=== PATIENT | female | born 1960 | race Caucasian/White ===

== ENCOUNTER 2017-08-28 18:53 | Inpatient (IN) | payer MEDICARE, OTHER ==
[~2017-08-28] VITALS: Ht 157.5 cm; Wt 65.8 kg
[~2017-08-28 18:53] MED LIST: ALBIPROI INH; ALBU90OI; ALBU90OI61 INH; ALEN70 PO; ALPR1 PO; AMIT25; AMIT50 PO; AMOCLA875 PO; ASPI81CH MT; AZIT250 PO; AZIT500 PO; Adipex-P37.5 M1 MT; CALCA500CH MT; CENTRUM SILVER1 EAC2 MT; CHANTIX; CHOL10002 MT; CLON2; CLON2 PO; CRUTCH3 USE; Catapres0.1 MG PO; DHEA PO; DOC250 PO; DOCU100 PO; DULO60 PO; ERGO400 PO; ESCI10; ESOM20; ESOM20 PO; ESZO3 PO; FENT50TP TOP; FERR325 MT; FLUO20 PO; FLUT.05NI; FURO20 PO; Flonase 0.05% N16 GM; GABA300 PO; HYDACE10B PO; HYDACE7.5 PO; HYDMOR4 PO; HYDPAM25 PO; LAVAP17G MT; LEVFLO500 PO; LEVO750 PO; LEVSOD100 PO; LEVSOD112 PO; LORA.5 PO; METH10 PO; MIRT15 SL; MORP15ER MT; MORP30ER MT; MORPHINE MT; NAPR500; NAPR500 PO; OMEP20ER PO; OMEP40CA12 PO; ONDA4 PO; OXYACE5T PO; OXYC10TA19 PO; OXYC15ER PO; OXYC1TAB11 PO; OXYC20ER; OXYC20ER PO; OXYC30ER PO; OXYC40ER PO; OXYC5 PO; POLY17UD PO; POTA10T PO; PRED10 PO; PRED20 PO; PREG50; PROM25; PROM25 PO; RANI150 PO; RXTRAM50 PO; SENN187 PO; SEVELLA PO; SOMA350 MG PO; SULTRIDS PO; TIZA4 PO; TOCO400 PO; TRAZ100 PO; Tamiflu75 MG PO; VIIBRYD20 MG MT; ZANAFLEX PO; [UNRECOGNIZED DRUG - OTHER] PO; [UNRECOGNIZED DRUG - OTHER] PO
[2017-08-28 19:25] LABS: BASOPHILS ABSOLUTE AUTO 0.02 K/mm3 (0.00-0.23); BASOPHILS PERCENT AUTO 0 % (0-2); EOSINOPHILS ABSOLUTE AUTO 0.07 K/mm3 (0.00-0.68); EOSINOPHILS PERCENT AUTO 1 % (0-6); Hematocrit 38.5 % (33.0-51.0); Hemoglobin 13.2 g/dL (11.5-16.0); IMMATURE GRAN ABSOLUTE AUTO 0.02 K/mm3 (0.00-0.10); IMMATURE GRAN PERCENT AUTO 0 % (0-1); LYMPHOCYTES ABSOLUTE AUTO 2.08 K/mm3 (0.84-5.20); LYMPHOCYTES PERCENT AUTO 31 % (21-46); MONOCYTES ABSOLUTE AUTO 0.56 K/mm3 (0.16-1.47); MONOCYTES PERCENT AUTO 8 % (4-13); Mean Corpuscular HGB 32.6 pg (26.0-34.0); Mean Corpuscular HGB Conc 34.3 g/dL (31.5-36.5); Mean Corpuscular Volume 95 fL (80-100); Mean Platelet Volume 10.1 fL (9.1-12.4); NEUTROPHILS ABSOLUTE AUTO 3.97 K/mm3 (1.96-9.15); NEUTROPHILS PERCENT AUTO 59 % (41-73); Platelet Count 151 K/mm3 (150-400); RDW Coefficient Variation 11.8 % (11.7-14.2); RDW Standard Deviation 41.1 fL (35.1-46.3); Red Blood Cell Count 4.05 M/mm3 (3.80-5.20); White Blood Cell Count 6.72 K/mm3 (4.00-11.30)
[2017-08-28 19:45] LABS: Alanine Aminotransfer (ALT/SGP 29 U/L (12-78); Albumin, Blood 3.7 g/dL (3.4-5.0); Albumin/Globulin Ratio 0.9 (0.8-1.8); Alk Phos 52 U/L (50-136); Anion Gap 10 mmol/L (6-16); Aspartate Aminotrans (AST/SGOT 21 U/L (12-37); Bilirubin, Total 0.2 mg/dL (0.1-1.0); Blood Urea Nitrogen 17 mg/dL (8-24); Bun/Creatinine Ratio 26.4 (12.0-20.0); CO2, Blood 26 mmol/L (21-32); Calcium, Blood 9.1 mg/dL (8.5-10.1); Chloride, Blood 105 mmol/L (98-108); Creatinine, Blood 0.64 mg/dL (0.40-1.00); Globulin, Blood 3.9 g/dL (2.2-4.0); Glomerular Filtration Rate >60 (60-); Glucose, Blood 112 mg/dL (70-99); Potassium, Blood 3.6 mmol/L (3.5-5.5); Sodium, Blood 141 mmol/L (136-145); Total Protein, Blood 7.6 g/dL (6.4-8.2); Troponin I <0.015 ng/mL (0.000-0.040)
[2017-08-28 20:20] LABS: Source, Urine Clean Catch
[2017-08-28 20:28] LABS: Bilirubin, Urine Neg (Neg); Blood, Urine 1+ (Neg); Glucose Qualitative, Urine Neg (Neg); Ketones, Urine Neg (Neg); Leukocyte Esterase, Urine 2+ (Neg); Nitrite, Urine Neg (Neg); Protein, Urine Neg (Neg); Urobilinogen, Urine NORM (Normal); pH, Urine 6.5 (5.0-8.0)
[2017-08-28 20:38] LABS: Appearance, Urine Hazy (Clear); Color, Urine Yellow (P-Yellow)
[2017-08-28 20:40] LABS: Bacteria Many /hpf; Squamous Epithelial Cells Few /hpf (Few)
[2017-08-28] MEDS ORDERED: Trazodone HCl300 MG PO (22:41)
[2017-08-28] MEDS ORDERED: QUET200 PO (22:44)
[2017-08-29] MEDS ORDERED: ANORO ELLIPTA1 EACH INH (12:01)
[2017-08-30] MEDS ORDERED: Augmentin 875-1 EACH PO (14:49)
[2018-05-01] MEDS ORDERED: ANORO ELLIPTA1 EACH (12:52)
[2018-05-01] MEDS ORDERED: VARE1 (12:53)
[2018-05-01] MEDS ORDERED: QUET25 (12:54)
[2018-05-01] MEDS ORDERED: PROM12.5S (12:54)
[2018-05-01] MEDS ORDERED: LEVSOD50 (12:54)
[2018-05-01] MEDS ORDERED: DICL25ER (12:55)
== END 2017-08-30 15:19 | disposition home or self-care (01) | DRG 339 ==
LOC: ER 18:53 → SURS 18:54
PROVIDERS: Emergency Medicine; Surgery
PROC: 0DTJ4ZZ Resection of Appendix, Percutaneous Endoscopic Approach (ICD-10-PCS; principal; 2017-08-29 16:50)
DX: K35.3 Acute appendicitis with localized peritonitis (principal); F11.20 Opioid dependence, uncomplicated; Z99.81 Dependence on supplemental oxygen; J44.9 Chronic obstructive pulmonary disease, unspecified; M81.0 Age-related osteoporosis without current pathological fracture; K21.9 Gastro-esophageal reflux disease without esophagitis; M79.7 Fibromyalgia; B18.2 Chronic viral hepatitis C; F17.210 Nicotine dependence, cigarettes, uncomplicated; Z88.8 Allergy status to other drugs, medicaments and biological substances; Z79.51 Long term (current) use of inhaled steroids; Z79.899 Other long term (current) drug therapy; Z79.82 Long term (current) use of aspirin
CPT/HCPCS: 36415; 74176; 80053; 81001; 83690; 84484; 85025; 87086; 88304; 93005; 93010; 96365; 96375; 96376; 99285; J0295; J1100; J1170; J1885; J2250; J2405; J2543; J2710; J3010; J7030; J7042; J7120

== ENCOUNTER → 2018-07-06 | Outpatient (CLI) | payer MEDICARE, OTHER ==
[~2018-07-06] MED LIST changes: +ANORO ELLIPTA1 EACH; +ANORO ELLIPTA1 EACH INH; +Augmentin 875-1 EACH PO; +DICL25ER; +LEVSOD50; +PROM12.5S; +QUET200 PO; +QUET25; +Trazodone HCl300 MG PO; +VARE1
[2018-07-06 14:02] LABS: Source, Urine Clean Catch
[2018-07-06 14:41] LABS: Bilirubin, Urine Neg (Neg); Blood, Urine Neg (Neg); Glucose Qualitative, Urine Neg (Neg); Ketones, Urine Neg (Neg); Leukocyte Esterase, Urine 1+ (Neg); Nitrite, Urine Neg (Neg); Protein, Urine 1+ (Neg); Urobilinogen, Urine 1+ (Normal)
[2018-07-06 14:53] LABS: Appearance, Urine Clear (Clear); Color, Urine Yellow (P-Yellow)
[2018-07-06 14:54] LABS: Bacteria Mod /hpf; Red Blood Cells, Urine 0-2 /hpf (0-2); Squamous Epithelial Cells Rare /hpf (Few); White Blood Cells, Urine 0-2 /hpf (0-5)
== END | disposition home or self-care (01) ==
LOC: LAB SHORT 14:01 → LAB 14:01 → LAB FUT 06-26 17:45 → EDSTATUS 06-26 17:45
PROVIDERS: Internal Medicine
DX: N39.0 Urinary tract infection, site not specified (principal)
CPT/HCPCS: 81001

== ENCOUNTER → 2018-07-17 | Outpatient (CLI) | payer MEDICARE, OTHER ==
[2018-07-17 12:55] LABS: Bilirubin, Urine Neg (Neg); Blood, Urine Neg (Neg); Glucose Qualitative, Urine Neg (Neg); Ketones, Urine Neg (Neg); Leukocyte Esterase, Urine Neg (Neg); Nitrite, Urine Neg (Neg); Protein, Urine Neg (Neg); Urobilinogen, Urine NORM (Normal)
[2018-07-17 13:11] LABS: Appearance, Urine Clear (Clear); Color, Urine Yellow (P-Yellow)
== END | disposition home or self-care (01) ==
LOC: LAB SHORT 07:15 → LAB 07:15 → LAB FUT 07-06 17:45
PROVIDERS: Internal Medicine
DX: N39.0 Urinary tract infection, site not specified (principal)
CPT/HCPCS: 81003

== ENCOUNTER → 2018-10-30 | Outpatient (CLI) | payer MEDICARE, OTHER ==
[2018-10-30 17:09] LABS: Source, Urine Clean Catch
[2018-10-30 17:44] LABS: Appearance, Urine Hazy (Clear); Bilirubin, Urine Neg (Neg); Blood, Urine Neg (Neg); Color, Urine Yellow (P-Yellow); Glucose Qualitative, Urine Neg (Neg); Ketones, Urine Neg (Neg); Leukocyte Esterase, Urine 1+ (Neg); Nitrite, Urine Neg (Neg); Protein, Urine Neg (Neg); Urobilinogen, Urine NORM (Normal)
[2018-10-30 18:00] LABS: Bacteria Few /hpf; Red Blood Cells, Urine 0-2 /hpf (0-2); Squamous Epithelial Cells Rare /hpf (Few); White Blood Cells, Urine 0-2 /hpf (0-5)
== END | disposition home or self-care (01) ==
LOC: LAB 17:07 → LAB SHORT 17:07
PROVIDERS: Internal Medicine
DX: N39.0 Urinary tract infection, site not specified (principal)
CPT/HCPCS: 81001; 87086

== ENCOUNTER 2019-03-04 16:11 | Emergency (ER) | payer MEDICARE, OTHER ==
[~2019-03-04] VITALS: Ht 160 cm; Wt 56.7 kg
[2019-03-04 17:02] LABS: Source, Urine Clean Catch
[2019-03-04] MEDS ORDERED: OXYC1TAB11 (17:03)
[2019-03-04] MEDS ORDERED: Alprazolam1 MG PO (17:03)
[2019-03-04] MEDS ORDERED: PROM25 PO (17:03)
[2019-03-04] MEDS ORDERED: DULO60 PO (17:05)
[2019-03-04 17:13] LABS: Bilirubin, Urine Neg (Neg); Blood, Urine 1+ (Neg); Glucose Qualitative, Urine Neg (Neg); Ketones, Urine Neg (Neg); Leukocyte Esterase, Urine 1+ (Neg); Nitrite, Urine Neg (Neg); Protein, Urine 1+ (Neg); Specific Gravity, Urine 1.025 (1.003-1.022); Urobilinogen, Urine NORM (Normal)
[2019-03-04 17:15] LABS: BASOPHILS ABSOLUTE AUTO 0.02 K/mm3 (0.00-0.23); BASOPHILS PERCENT AUTO 0 % (0-2); EOSINOPHILS ABSOLUTE AUTO 0.09 K/mm3 (0.00-0.68); EOSINOPHILS PERCENT AUTO 2 % (0-6); Hematocrit 35.3 % (33.0-51.0); Hemoglobin 12.3 g/dL (11.5-16.0); IMMATURE GRAN ABSOLUTE AUTO 0.01 K/mm3 (0.00-0.10); IMMATURE GRAN PERCENT AUTO 0 % (0-1); LYMPHOCYTES ABSOLUTE AUTO 2.41 K/mm3 (0.84-5.20); LYMPHOCYTES PERCENT AUTO 50 % (21-46); MONOCYTES ABSOLUTE AUTO 0.39 K/mm3 (0.16-1.47); MONOCYTES PERCENT AUTO 8 % (4-13); Mean Corpuscular HGB 33.7 pg (26.0-34.0); Mean Corpuscular HGB Conc 34.8 g/dL (31.5-36.5); Mean Corpuscular Volume 97 fL (80-100); Mean Platelet Volume 10.6 fL (9.1-12.4); NEUTROPHILS ABSOLUTE AUTO 1.92 K/mm3 (1.96-9.15); NEUTROPHILS PERCENT AUTO 40 % (41-73); Platelet Count 153 K/mm3 (150-400); RDW Coefficient Variation 12.6 % (11.7-14.2); RDW Standard Deviation 44.8 fL (35.1-46.3); Red Blood Cell Count 3.65 M/mm3 (3.80-5.20); White Blood Cell Count 4.84 K/mm3 (4.00-11.30)
[2019-03-04 17:21] LABS: Appearance, Urine Clear (Clear); Calcium Oxalate Crystals Many /hpf; Color, Urine Yellow (P-Yellow)
[2019-03-04 17:22] LABS: Bacteria Few /hpf; Red Blood Cells, Urine 0-2 /hpf (0-2); Squamous Epithelial Cells Few /hpf (Few)
[2019-03-04 17:32] LABS: Alanine Aminotransfer (ALT/SGP 23 U/L (12-78); Albumin, Blood 3.7 g/dL (3.4-5.0); Albumin/Globulin Ratio 1.2 (0.8-1.8); Alk Phos 115 U/L (50-136); Anion Gap 3 mmol/L (6-16); Aspartate Aminotrans (AST/SGOT 19 U/L (12-37); Bilirubin, Total 0.3 mg/dL (0.1-1.0); Blood Urea Nitrogen 14 mg/dL (8-24); Bun/Creatinine Ratio 24.8 (12.0-20.0); CO2, Blood 27 mmol/L (21-32); Chloride, Blood 111 mmol/L (98-108); Creatinine, Blood 0.57 mg/dL (0.40-1.00); Globulin, Blood 3.2 g/dL (2.2-4.0); Glomerular Filtration Rate >60 (60-); Glucose, Blood 96 mg/dL (70-99); Potassium, Blood 3.9 mmol/L (3.5-5.5); Sodium, Blood 141 mmol/L (136-145); Total Protein, Blood 6.9 g/dL (6.4-8.2)
== END 2019-03-04 18:50 | disposition home or self-care (01) ==
LOC: ER 16:11
PROVIDERS: Physician Assistant
DX: R42 Dizziness and giddiness (principal); J44.9 Chronic obstructive pulmonary disease, unspecified; F17.210 Nicotine dependence, cigarettes, uncomplicated; K21.9 Gastro-esophageal reflux disease without esophagitis; Z88.8 Allergy status to other drugs, medicaments and biological substances; Z79.899 Other long term (current) drug therapy; Z79.891 Long term (current) use of opiate analgesic; Z79.1 Long term (current) use of non-steroidal anti-inflammatories (NSAID)
CPT/HCPCS: 36415; 80053; 81001; 85025; 87077; 87086; 87186; 99284

== ENCOUNTER → 2019-05-03 | Outpatient (CLI) | payer MEDICARE, OTHER ==
[~2019-05-03] MED LIST changes: +Alprazolam1 MG PO; +OXYC1TAB11
[2019-05-03 12:10] LABS: Bilirubin, Urine Neg (Neg); Blood, Urine Neg (Neg); Glucose Qualitative, Urine Neg (Neg); Ketones, Urine Neg (Neg); Leukocyte Esterase, Urine 1+ (Neg); Nitrite, Urine Neg (Neg); Protein, Urine Neg (Neg); Urobilinogen, Urine NORM (Normal)
[2019-05-03 12:34] LABS: Appearance, Urine Hazy (Clear); Color, Urine Yellow (P-Yellow)
[2019-05-03 12:35] LABS: Amorphous Heavy (0-Heavy); Bacteria Few /hpf; Red Blood Cells, Urine 0-2 /hpf (0-2); Squamous Epithelial Cells Rare /hpf (Few)
== END | disposition home or self-care (01) ==
LOC: LAB SHORT 09:30 → OLS 09:30
PROVIDERS: Internal Medicine
DX: N39.0 Urinary tract infection, site not specified (principal)
CPT/HCPCS: 81001; 87086; 87147

== ENCOUNTER → 2019-05-06 | Outpatient (CLI) | payer MEDICARE, OTHER ==
[2019-05-07 13:26] LABS: Stool Occult Bld Immuno 1 Negative (NEGATIVE); Stool Occult Bld Immuno 2 Negative (NEGATIVE)
== END | disposition home or self-care (01) ==
LOC: OLS 08:15 → LAB SHORT 08:15
PROVIDERS: Internal Medicine
DX: Z12.11 Encounter for screening for malignant neoplasm of colon (principal)
CPT/HCPCS: G0328

== ENCOUNTER → 2019-05-11 | Outpatient (CLI) | payer MEDICARE, OTHER ==
[2019-05-15 15:07] LABS: M-SPIKE, % Not Observed % (Not Observed); PROTEIN,TOTAL,URINE 8.9 mg/dL (Not Estab.)
== END ==
LOC: OLS 10:49 → LAB SHORT 10:49
PROVIDERS: Internal Medicine
DX: Z00.01 Encounter for general adult medical examination with abnormal findings (principal)
CPT/HCPCS: 81050; 84166; 86335

== ENCOUNTER → 2019-08-06 | Outpatient (CLI) | payer MEDICARE, OTHER | LOC: LAB 19:38 → LAB SHORT 19:38 | DX: R30.0 Dysuria (principal) | CPT/HCPCS: 87077; 87086 ==

== ENCOUNTER → 2019-10-29 | Outpatient (CLI) | payer MEDICARE, OTHER | END | disposition home or self-care (01) | LOC: LAB SHORT 18:30 → LAB 18:30 → LAB FUT 05-04 19:05 | DX: R30.0 Dysuria (principal) | CPT/HCPCS: 87086; 87147 ==

== ENCOUNTER → 2020-04-30 | Outpatient (CLI) | payer MEDICARE, OTHER ==
[2020-04-30 15:06] LABS: Bilirubin, Urine Neg (Neg); Blood, Urine 1+ (Neg); Glucose Qualitative, Urine Neg (Neg); Ketones, Urine Neg (Neg); Leukocyte Esterase, Urine Neg (Neg); Nitrite, Urine Neg (Neg); Protein, Urine Neg (Neg); Specific Gravity, Urine 1.015 (1.003-1.022); Urobilinogen, Urine NORM (Normal)
[2020-04-30 15:18] LABS: Appearance, Urine Clear (Clear); Color, Urine Yellow (P-Yellow)
[2020-04-30 15:19] LABS: Bacteria Few /hpf; Squamous Epithelial Cells Few /hpf (Few); White Blood Cells, Urine 0-2 /hpf (0-5)
== END ==
LOC: LAB SHORT 13:50 → LAB 13:50
PROVIDERS: Internal Medicine
DX: N39.0 Urinary tract infection, site not specified (principal)
CPT/HCPCS: 81001

== ENCOUNTER 2020-06-20 08:17 | Emergency (ER) | payer OTHER, MEDICARE ==
[~2020-06-20] VITALS: Ht 160 cm; Wt 55.3 kg
[2020-06-20 09:00] LABS: Source, Urine Clean Catch
[2020-06-20] MEDS ORDERED: CHLORZOXAZONE375 MG PO (09:02)
[2020-06-20] MEDS ORDERED: DULOXETINE HCL60 M1 PO (09:02)
[2020-06-20] MEDS ORDERED: GABAPENTIN600 MG (09:02)
[2020-06-20 09:03] LABS: BASOPHILS ABSOLUTE AUTO 0.02 K/mm3 (0.00-0.23); BASOPHILS PERCENT AUTO 1 % (0-2); EOSINOPHILS ABSOLUTE AUTO 0.06 K/mm3 (0.00-0.68); EOSINOPHILS PERCENT AUTO 2 % (0-6); Hematocrit 38.9 % (33.0-51.0); Hemoglobin 13.3 g/dL (11.5-16.0); IMMATURE GRAN PERCENT AUTO 0 % (0-1); LYMPHOCYTES ABSOLUTE AUTO 1.88 K/mm3 (0.84-5.20); LYMPHOCYTES PERCENT AUTO 46 % (21-46); MONOCYTES ABSOLUTE AUTO 0.36 K/mm3 (0.16-1.47); MONOCYTES PERCENT AUTO 9 % (4-13); Mean Corpuscular HGB 33.4 pg (26.0-34.0); Mean Corpuscular HGB Conc 34.2 g/dL (31.5-36.5); Mean Corpuscular Volume 98 fL (80-100); Mean Platelet Volume 10.7 fL (9.1-12.4); NEUTROPHILS ABSOLUTE AUTO 1.75 K/mm3 (1.96-9.15); NEUTROPHILS PERCENT AUTO 43 % (41-73); Platelet Count 144 K/mm3 (150-400); RDW Coefficient Variation 11.9 % (11.7-14.2); RDW Standard Deviation 42.6 fL (35.1-46.3); Red Blood Cell Count 3.98 M/mm3 (3.80-5.20); White Blood Cell Count 4.07 K/mm3 (4.00-11.30)
[2020-06-20] MEDS ORDERED: Phenergan25 M1 (09:03)
[2020-06-20] MEDS ORDERED: ALPRAZOLAM1 M1 PO (09:03)
[2020-06-20] MEDS ORDERED: TRAZ100 PO (09:03)
[2020-06-20] MEDS ORDERED: EUTHYROX88 MC1 PO (09:04)
[2020-06-20] MEDS ORDERED: OXYCODONE-ACET1 EAC2 PO (09:04)
[2020-06-20 09:08] LABS: Bilirubin, Urine Neg (Neg); Blood, Urine 1+ (Neg); Glucose Qualitative, Urine Neg (Neg); Ketones, Urine Neg (Neg); Leukocyte Esterase, Urine 1+ (Neg); Nitrite, Urine Pos (Neg); Protein, Urine Neg (Neg); Specific Gravity, Urine 1.015 (1.003-1.022); Urobilinogen, Urine NORM (Normal)
[2020-06-20 09:17] LABS: Appearance, Urine Hazy (Clear); Bacteria Mod /hpf; Color, Urine Yellow (P-Yellow); Squamous Epithelial Cells Few /hpf (Few)
[2020-06-20 09:25] LABS: Alanine Aminotransfer (ALT/SGP 27 U/L (12-78); Albumin/Globulin Ratio 1.2 (0.8-1.8); Alk Phos 100 U/L (50-136); Anion Gap 4 mmol/L (6-16); Aspartate Aminotrans (AST/SGOT 18 U/L (12-37); Bilirubin, Total 0.3 mg/dL (0.1-1.0); Blood Urea Nitrogen 17 mg/dL (8-24); Bun/Creatinine Ratio 27.9 (12.0-20.0); CO2, Blood 30 mmol/L (21-32); Calcium, Blood 9.4 mg/dL (8.5-10.1); Chloride, Blood 109 mmol/L (98-108); Creatinine, Blood 0.61 mg/dL (0.40-1.00); Globulin, Blood 3.4 g/dL (2.2-4.0); Glomerular Filtration Rate >60 (60-); Glucose, Blood 131 mg/dL (70-99); Sodium, Blood 143 mmol/L (136-145); Total Protein, Blood 7.4 g/dL (6.4-8.2)
== END 2020-06-20 10:11 | disposition home or self-care (01) ==
LOC: ER 08:17
PROVIDERS: Physician Assistant
DX: G89.29 Other chronic pain (principal); R10.9 Unspecified abdominal pain; M25.512 Pain in left shoulder; M79.651 Pain in right thigh; M25.561 Pain in right knee; R11.2 Nausea with vomiting, unspecified; K21.9 Gastro-esophageal reflux disease without esophagitis; F17.210 Nicotine dependence, cigarettes, uncomplicated; Z87.828 Personal history of other (healed) physical injury and trauma; Z79.899 Other long term (current) drug therapy
CPT/HCPCS: 36415; 80053; 81001; 85025; 87077; 87086; 87186; 96374; 96375; 99284-25; J1170; J2405

== ENCOUNTER 2020-08-23 07:11 | Emergency (ER) | payer MEDICARE, OTHER ==
[~2020-08-23] VITALS: Ht 160 cm; Wt 56.7 kg
[~2020-08-23 07:11] MED LIST changes: +ALPRAZOLAM1 M1 PO; +CHLORZOXAZONE375 MG PO; +DULOXETINE HCL60 M1 PO; +EUTHYROX88 MC1 PO; +GABAPENTIN600 MG PO; +OXYCODONE-ACET1 EAC2 PO; +Phenergan25 M1 PO
[2020-08-23 07:26] LABS: Source, Urine Clean Catch
[2020-08-23 07:28] LABS: Bilirubin, Urine Neg (Neg); Blood, Urine Neg (Neg); Glucose Qualitative, Urine Neg (Neg); Ketones, Urine Neg (Neg); Leukocyte Esterase, Urine Neg (Neg); Nitrite, Urine Neg (Neg); Protein, Urine Neg (Neg); Specific Gravity, Urine 1.015 (1.003-1.022); Urobilinogen, Urine NORM (Normal)
[2020-08-23] MEDS ORDERED: MS Contin15 MG PO (07:34)
[2020-08-23] MEDS ORDERED: MORPHINE SULFAT15 M1 PO (07:34)
[2020-08-23] MEDS ORDERED: TRAZ50 PO (07:35)
[2020-08-23] MEDS ORDERED: AMIT10 PO (07:37)
[2020-08-23] MEDS ORDERED: Ventolin/Prove6.7 GM INH (07:38)
[2020-08-23] MEDS ORDERED: NARCAN4 M1 (07:38)
[2020-08-23 07:40] LABS: Amorphous Mod (0-Heavy); Appearance, Urine Hazy (Clear); Bacteria Not Seen /hpf; Color, Urine Yellow (P-Yellow); Red Blood Cells, Urine Not Seen /hpf (0-2); Squamous Epithelial Cells Not Seen /hpf (Few); White Blood Cells, Urine Not Seen /hpf (0-5)
[2020-08-23] MEDS ORDERED: GABAPENTIN600 MG PO (07:41)
[2020-08-23 08:30] LABS: BASOPHILS ABSOLUTE AUTO 0.03 K/mm3 (0.00-0.23); BASOPHILS PERCENT AUTO 0 % (0-2); EOSINOPHILS ABSOLUTE AUTO 0.08 K/mm3 (0.00-0.68); EOSINOPHILS PERCENT AUTO 1 % (0-6); Hematocrit 37.1 % (33.0-51.0); Hemoglobin 12.5 g/dL (11.5-16.0); IMMATURE GRAN ABSOLUTE AUTO 0.04 K/mm3 (0.00-0.10); IMMATURE GRAN PERCENT AUTO 0 % (0-1); LYMPHOCYTES ABSOLUTE AUTO 1.24 K/mm3 (0.84-5.20); LYMPHOCYTES PERCENT AUTO 14 % (21-46); MONOCYTES ABSOLUTE AUTO 0.76 K/mm3 (0.16-1.47); MONOCYTES PERCENT AUTO 8 % (4-13); Mean Corpuscular HGB 32.3 pg (26.0-34.0); Mean Corpuscular HGB Conc 33.7 g/dL (31.5-36.5); Mean Corpuscular Volume 96 fL (80-100); Mean Platelet Volume 10.7 fL (9.1-12.4); NEUTROPHILS PERCENT AUTO 77 % (41-73); Platelet Count 130 K/mm3 (150-400); RDW Coefficient Variation 11.4 % (11.7-14.2); RDW Standard Deviation 40.4 fL (35.1-46.3); Red Blood Cell Count 3.87 M/mm3 (3.80-5.20); White Blood Cell Count 9.15 K/mm3 (4.00-11.30)
[2020-08-23 08:51] LABS: Alanine Aminotransfer (ALT/SGP 26 U/L (12-78); Albumin, Blood 3.5 g/dL (3.4-5.0); Alk Phos 84 U/L (50-136); Anion Gap 5 mmol/L (6-16); Aspartate Aminotrans (AST/SGOT 18 U/L (12-37); Bilirubin, Total 0.4 mg/dL (0.1-1.0); Blood Urea Nitrogen 18 mg/dL (8-24); Bun/Creatinine Ratio 29.6 (12.0-20.0); CO2, Blood 28 mmol/L (21-32); Calcium, Blood 9.1 mg/dL (8.5-10.1); Chloride, Blood 110 mmol/L (98-108); Creatinine, Blood 0.61 mg/dL (0.40-1.00); Globulin, Blood 3.5 g/dL (2.2-4.0); Glomerular Filtration Rate >60 (60-); Glucose, Blood 96 mg/dL (70-99); Potassium, Blood 3.9 mmol/L (3.5-5.5); Sodium, Blood 143 mmol/L (136-145); Troponin I <0.015 ng/mL (0.000-0.040)
[2020-08-23 09:11] LABS: Influenza A, PCR NEGATIVE (NEGATIVE); Influenza B, PCR NEGATIVE (NEGATIVE); Resp Syncytial Virus, PCR NEGATIVE (NEGATIVE); SARS-Cov-2 (COVID-19) PCR, MMC NEGATIVE (NEGATIVE)
[2020-08-23] MEDS ORDERED: Vibramycin100 MG PO (09:36)
[2020-08-23] MEDS ORDERED: Prednisone50 MG PO (09:36)
[2020-08-23] MEDS ORDERED: ALBU90OI INH (09:36)
[2020-08-23 09:47] LABS: Base Excess Venous 2.1 mmol/L; Bicarbonate Venous 25.9 mmol/L (24.0-30.0); PCO2 Venous 44.4 mmHg (38-42); PO2 Venous 122 mmHg (38-42); pH Blood Venous 7.39 (7.34-7.37)
[2020-12-27] MEDS ORDERED: CYMBALTA60 M2 PO (06:13)
[2020-12-27] MEDS ORDERED: ALPRAZOLAM PO (06:16)
[2020-12-27] MEDS ORDERED: FERROUS SULFAT325 M3 PO (06:17)
[2020-12-27] MEDS ORDERED: COLACE100 MG PO (06:17)
[2020-12-27] MEDS ORDERED: LINZESS290 MCG PO (06:17)
[2020-12-27] MEDS ORDERED: SEROQUEL200 MG PO (06:18)
[2020-12-27] MEDS ORDERED: OXYC10TA19 (06:18)
[2020-12-27] MEDS ORDERED: ZANAFLEX4 M5 PO (06:18)
[2020-12-27] MEDS ORDERED: PROZAC40 MG PO (06:18)
[2020-12-27] MEDS ORDERED: FENT200LOZ MM (06:19)
[2020-12-27] MEDS ORDERED: MS CONTIN PO (06:19)
[2020-12-27] MEDS ORDERED: EUTHYROX88 MC1 (06:19)
[2020-12-27] MEDS ORDERED: CHLORZOXAZONE375 MG (06:20)
[2020-12-27] MEDS ORDERED: TRAZ50 (06:21)
[2020-12-27] MEDS ORDERED: AMOCLA875 PO (08:25)
[2020-12-27] MEDS ORDERED: DOXY100 PO (08:25)
== END 2020-08-23 09:58 | disposition home or self-care (01) ==
LOC: ER 07:11
PROVIDERS: Emergency Medicine
DX: J44.1 Chronic obstructive pulmonary disease with (acute) exacerbation (principal); F17.210 Nicotine dependence, cigarettes, uncomplicated; Z20.822 Contact with and (suspected) exposure to COVID-19; Z79.899 Other long term (current) drug therapy
CPT/HCPCS: 0241U; 36415; 71045; 80053; 81001; 82803; 83880; 84484; 85025; 93005; 93010; 94640; 99285-25; A9270; J7030; J7512

== ENCOUNTER 2020-11-24 17:43 | Emergency (ER) | payer MEDICARE, OTHER ==
[~2020-11-24] VITALS: Ht 160 cm; Wt 63.5 kg
[~2020-11-24 17:43] MED LIST changes: +ALBU90OI INH; +AMIT10 PO; +MORPHINE SULFAT15 M1 PO; +MS Contin15 MG PO; +NARCAN4 M1; +Prednisone50 MG PO; +TRAZ50 PO; +Ventolin/Prove6.7 GM INH; +Vibramycin100 MG PO
[2020-11-24 19:06] LABS: BASOPHILS ABSOLUTE AUTO 0.03 K/mm3 (0.00-0.23); BASOPHILS PERCENT AUTO 1 % (0-2); EOSINOPHILS ABSOLUTE AUTO 0.18 K/mm3 (0.00-0.68); EOSINOPHILS PERCENT AUTO 4 % (0-6); Hematocrit 38.7 % (33.0-51.0); IMMATURE GRAN ABSOLUTE AUTO 0.01 K/mm3 (0.00-0.10); IMMATURE GRAN PERCENT AUTO 0 % (0-1); LYMPHOCYTES ABSOLUTE AUTO 2.06 K/mm3 (0.84-5.20); LYMPHOCYTES PERCENT AUTO 42 % (21-46); MONOCYTES ABSOLUTE AUTO 0.49 K/mm3 (0.16-1.47); MONOCYTES PERCENT AUTO 10 % (4-13); Mean Corpuscular HGB 32.6 pg (26.0-34.0); Mean Corpuscular HGB Conc 33.6 g/dL (31.5-36.5); Mean Corpuscular Volume 97 fL (80-100); Mean Platelet Volume 10.1 fL (9.1-12.4); NEUTROPHILS ABSOLUTE AUTO 2.18 K/mm3 (1.96-9.15); NEUTROPHILS PERCENT AUTO 44 % (41-73); Platelet Count 151 K/mm3 (150-400); RDW Coefficient Variation 12.8 % (11.7-14.2); RDW Standard Deviation 45.9 fL (35.1-46.3); Red Blood Cell Count 3.99 M/mm3 (3.80-5.20); White Blood Cell Count 4.95 K/mm3 (4.00-11.30)
[2020-11-24 19:44] LABS: Alanine Aminotransfer (ALT/SGP 40 U/L (12-78); Albumin, Blood 4.1 g/dL (3.4-5.0); Albumin/Globulin Ratio 1.2 (0.8-1.8); Alk Phos 99 U/L (50-136); Anion Gap 0 mmol/L (6-16); Aspartate Aminotrans (AST/SGOT 28 U/L (12-37); Bilirubin, Total 0.3 mg/dL (0.1-1.0); Blood Urea Nitrogen 18 mg/dL (8-24); Bun/Creatinine Ratio 26.1 (12.0-20.0); CO2, Blood 32 mmol/L (21-32); Calcium, Blood 9.6 mg/dL (8.5-10.1); Chloride, Blood 106 mmol/L (98-108); Creatinine, Blood 0.69 mg/dL (0.40-1.00); Globulin, Blood 3.3 g/dL (2.2-4.0); Glomerular Filtration Rate >60 (60-); Glucose, Blood 93 mg/dL (70-99); Potassium, Blood 4.4 mmol/L (3.5-5.5); Sodium, Blood 138 mmol/L (136-145); Total Protein, Blood 7.4 g/dL (6.4-8.2); Troponin I <0.015 ng/mL (0.000-0.040)
[2020-11-24] MEDS ORDERED: GABA100 PO (20:43)
[2020-12-27] MEDS ORDERED: CYMBALTA60 M2 PO (06:13)
[2020-12-27] MEDS ORDERED: ALPRAZOLAM PO (06:16)
[2020-12-27] MEDS ORDERED: FERROUS SULFAT325 M3 PO (06:17)
[2020-12-27] MEDS ORDERED: COLACE100 MG PO (06:17)
[2020-12-27] MEDS ORDERED: LINZESS290 MCG PO (06:17)
[2020-12-27] MEDS ORDERED: OXYC10TA19 (06:18)
[2020-12-27] MEDS ORDERED: PROZAC40 MG PO (06:18)
[2020-12-27] MEDS ORDERED: SEROQUEL200 MG PO (06:18)
[2020-12-27] MEDS ORDERED: ZANAFLEX4 M5 PO (06:18)
[2020-12-27] MEDS ORDERED: EUTHYROX88 MC1 (06:19)
[2020-12-27] MEDS ORDERED: FENT200LOZ MM (06:19)
[2020-12-27] MEDS ORDERED: MS CONTIN PO (06:19)
[2020-12-27] MEDS ORDERED: CHLORZOXAZONE375 MG (06:20)
[2020-12-27] MEDS ORDERED: TRAZ50 (06:21)
[2020-12-27] MEDS ORDERED: AMOCLA875 PO (08:25)
[2020-12-27] MEDS ORDERED: DOXY100 PO (08:25)
== END 2020-11-24 21:48 | disposition home or self-care (01) ==
LOC: ER 17:43
PROVIDERS: Physician Assistant
DX: R60.0 Localized edema (principal); K21.9 Gastro-esophageal reflux disease without esophagitis; F17.210 Nicotine dependence, cigarettes, uncomplicated; Z79.899 Other long term (current) drug therapy
CPT/HCPCS: 36415; 71045; 80053; 83880; 84484; 85025; 93005; 93010; 93971; 99284-25

== ENCOUNTER 2020-12-04 10:59 | Emergency (ER) | payer MEDICARE, OTHER ==
[~2020-12-04] VITALS: Ht 160 cm; Wt 63.5 kg
[~2020-12-04 10:59] MED LIST changes: +GABA100 PO
[2020-12-27] MEDS ORDERED: CYMBALTA60 M2 PO (06:13)
[2020-12-27] MEDS ORDERED: ALPRAZOLAM PO (06:16)
[2020-12-27] MEDS ORDERED: COLACE100 MG PO (06:17)
[2020-12-27] MEDS ORDERED: FERROUS SULFAT325 M3 PO (06:17)
[2020-12-27] MEDS ORDERED: LINZESS290 MCG PO (06:17)
[2020-12-27] MEDS ORDERED: OXYC10TA19 (06:18)
[2020-12-27] MEDS ORDERED: ZANAFLEX4 M5 PO (06:18)
[2020-12-27] MEDS ORDERED: SEROQUEL200 MG PO (06:18)
[2020-12-27] MEDS ORDERED: PROZAC40 MG PO (06:18)
[2020-12-27] MEDS ORDERED: MS CONTIN PO (06:19)
[2020-12-27] MEDS ORDERED: EUTHYROX88 MC1 (06:19)
[2020-12-27] MEDS ORDERED: FENT200LOZ MM (06:19)
[2020-12-27] MEDS ORDERED: CHLORZOXAZONE375 MG (06:20)
[2020-12-27] MEDS ORDERED: TRAZ50 (06:21)
[2020-12-27] MEDS ORDERED: DOXY100 PO (08:25)
[2020-12-27] MEDS ORDERED: AMOCLA875 PO (08:25)
== END 2020-12-04 12:24 | disposition home or self-care (01) ==
LOC: ER 10:59
DX: R07.9 Chest pain, unspecified (principal); G89.29 Other chronic pain; R06.02 Shortness of breath; R05 Cough; K21.9 Gastro-esophageal reflux disease without esophagitis; F17.210 Nicotine dependence, cigarettes, uncomplicated; Z79.899 Other long term (current) drug therapy
CPT/HCPCS: 36415; 71046; 84484; 93005; 93010; 99284-25

== ENCOUNTER 2020-12-30 06:28 | Day surgery (SDC) | payer MEDICARE, OTHER ==
[~2020-12-30 06:28] MED LIST changes: +ALPRAZOLAM PO; +CHLORZOXAZONE375 MG; +COLACE100 MG PO; +CYMBALTA60 M2 PO; +DOXY100 PO; +EUTHYROX88 MC1; +FENT200LOZ MM; +FERROUS SULFAT325 M3 PO; +LINZESS290 MCG PO; +MS CONTIN PO; +OXYC10TA19; +PROZAC40 MG PO; +SEROQUEL200 MG PO; +TRAZ50; +ZANAFLEX4 M5 PO
--- NOTE | 2020-12-30 07:01 | NUR ---
12/30/20 0701 Olinda Shah PATIENT NOTIFIED ADMITTING PERSON THAT SHE HAD BEEN DIAGNOSED WITH PNEUMONIA IN THE ER ON 12/27/20. ADMITTING PERSON PRINTED OUT THIS INFORMATION. THIS WAS DISCUSSED WITH DR EVERETT AND HE AGREES WITH FACILITY POLICY THAT PROCEDURE SHOULD BE RESCHEDULED AT LEAST 6 WEEKS OUT. I WENT OUT AND DISCUSSED ALL THIS WITH THE PATIENT AND SHE EXPRESSES UNDERSTANDING. SHE DOES TELL ME THAT SHE TOLD THE PREOP PHONE DRILL BIT SHARPENER THIS AND THE PERSON TOLD HER LONG SHE WAS FEELING OK THAT SHE COULD HAVE HER PROCEDURE. SHE ASKED ME TO MAKE SURE THIS PERSON KNOWS THE RIGHT THING TO SAY. I ASSURRED HER THAT THE CHARGE NURSE WILL TAKE CARE OF THIS. PATIENT WAS VERY UNDERSTANDING AND SHE AGREES TO CALL DR MAY'S OFFICE TO RESCHEDULE FOR APPROPRIATE TIME
== END 2020-12-30 06:55 | disposition home or self-care (01) ==
LOC: ORSCSDS 06:28
DX: G56.01 Carpal tunnel syndrome, right upper limb (principal); Z53.9 Procedure and treatment not carried out, unspecified reason

== ENCOUNTER → 2021-04-07 | Outpatient (CLI) | payer MEDICARE, OTHER ==
[~2021-04-07] MED LIST changes: +AMITRIPTYLINE H25 MG PO; +ANORO ELLIPTA1 EAC1 INH; +LEVO-T88 MC1 PO; +LINZESS72 MCG PO; +MORP30ER PO; -MS CONTIN PO; -OXYC10TA19
[2021-04-07 17:53] LABS: Source, Urine Clean Catch
[2021-04-07 20:31] LABS: Appearance, Urine Hazy (Clear); Bilirubin, Urine Neg (Neg); Blood, Urine Neg (Neg); Color, Urine Yellow (P-Yellow); Glucose Qualitative, Urine Neg (Neg); Ketones, Urine Neg (Neg); Leukocyte Esterase, Urine 3+ (Neg); Nitrite, Urine Neg (Neg); Protein, Urine 1+ (Neg); Specific Gravity, Urine 1.015 (1.003-1.022); Urobilinogen, Urine NORM (Normal)
[2021-04-07 20:50] LABS: White Blood Cells, Urine 50-100 /hpf (0-5)
[2021-04-07 20:51] LABS: Bacteria Many /hpf; Red Blood Cells, Urine Rare /hpf (0-2); Squamous Epithelial Cells Rare /hpf (Few)
== END ==
LOC: LAB 17:48 → LAB SHORT 17:48
DX: R35.0 Frequency of micturition (principal)
CPT/HCPCS: 81001

== ENCOUNTER 2021-04-09 06:27 | Day surgery (SDC) | payer MEDICARE, OTHER ==
[~2021-04-09] VITALS: Ht 160 cm; Wt 69.9 kg
[~2021-04-09 06:27] MED LIST changes: -AMITRIPTYLINE H25 MG PO; -ANORO ELLIPTA1 EAC1 INH; -LEVO-T88 MC1 PO; -LINZESS72 MCG PO
[2021-04-09] MEDS ORDERED: CHLORZOXAZONE375 MG PO (07:20)
[2021-04-09] MEDS ORDERED: ANORO ELLIPTA1 EAC1 INH (07:20)
[2021-04-09] MEDS ORDERED: AMITRIPTYLINE H25 MG PO (07:20)
[2021-04-09] MEDS ORDERED: TRAZ50 PO (07:21)
[2021-04-09] MEDS ORDERED: LINZESS72 MCG PO (07:21)
[2021-04-09] MEDS ORDERED: LEVO-T88 MC1 PO (07:21)
== END 2021-04-09 08:25 | disposition home or self-care (01) ==
LOC: ORSCSDS 06:27
PROVIDERS: Orthopaedic Surgery
PROC: 01N50ZZ Release Median Nerve, Open Approach (ICD-10-PCS; principal; 2021-04-09 07:30)
DX: G56.01 Carpal tunnel syndrome, right upper limb (principal); I10 Essential (primary) hypertension; K21.9 Gastro-esophageal reflux disease without esophagitis; J44.9 Chronic obstructive pulmonary disease, unspecified; F41.9 Anxiety disorder, unspecified; F41.8 Other specified anxiety disorders; Z86.73 Personal history of transient ischemic attack (TIA), and cerebral infarction without residual deficits; B19.20 Unspecified viral hepatitis C without hepatic coma; Z87.891 Personal history of nicotine dependence; Z79.899 Other long term (current) drug therapy
CPT/HCPCS: J7120

== ENCOUNTER → 2021-04-14 | Outpatient (CLI) | payer MEDICARE, OTHER ==
[~2021-04-14] MED LIST changes: +AMITRIPTYLINE H25 MG PO; +ANORO ELLIPTA1 EAC1 INH; +LEVO-T88 MC1 PO; +LINZESS72 MCG PO
== END | disposition home or self-care (01) ==
LOC: LAB 06:00 → LAB SHORT 06:00
DX: R05.9 Cough, unspecified (principal)
CPT/HCPCS: 87070; 87205

== ENCOUNTER 2021-05-26 08:44 | Day surgery (SDC) | payer OTHER, MEDICARE ==
[~2021-05-26] VITALS: Ht 160 cm; Wt 69.6 kg
--- NOTE | 2021-05-26 10:39 | NUR ---
05/26/21 1039 Libby Joseph NEW IV STARTED IN OR IN RIGHT FA BY DR. ARCOS. PREVIOUS IV NOT RUNNING ADEQUATE. PT SLEEPING DURING NEW IV PLACEMENT.
== END 2021-05-26 11:24 | disposition home or self-care (01) ==
LOC: ORSCSDS 08:44
PROVIDERS: Orthopaedic Surgery
PROC: 0JBF0ZZ Excision of Left Upper Arm Subcutaneous Tissue and Fascia, Open Approach (ICD-10-PCS; principal; 2021-05-26 10:00)
DX: D17.22 Benign lipomatous neoplasm of skin and subcutaneous tissue of left arm (principal); I10 Essential (primary) hypertension; J44.9 Chronic obstructive pulmonary disease, unspecified; E03.9 Hypothyroidism, unspecified; F41.9 Anxiety disorder, unspecified; Z79.899 Other long term (current) drug therapy
CPT/HCPCS: 88304; J0690; J2795; J3010; J7120

== ENCOUNTER → 2022-04-26 | Outpatient (CLI) | payer MEDICARE, OTHER ==
[~2022-04-26] MED LIST changes: +ALPR.25 PO; +PERCOCET 10-321 EA10 PO
== END | disposition home or self-care (01) ==
LOC: LAB SHORT 14:59 → PLD 14:59
DX: L82.1 Other seborrheic keratosis (principal); L81.8 Other specified disorders of pigmentation
CPT/HCPCS: 88305

== ENCOUNTER → 2022-05-05 | Outpatient (CLI) | payer MEDICARE, OTHER ==
[2022-05-05 15:15] LABS: Appearance, Urine Cloudy (Clear); Bilirubin, Urine Neg (Neg); Blood, Urine 3+ (Neg); Color, Urine Yellow (P-Yellow); Glucose Qualitative, Urine Neg (Neg); Ketones, Urine Neg (Neg); Leukocyte Esterase, Urine 3+ (Neg); Nitrite, Urine Pos (Neg); Protein, Urine 2+ (Neg); Specific Gravity, Urine 1.015 (1.003-1.022); Urobilinogen, Urine NORM (Normal)
[2022-05-05 15:35] LABS: Bacteria Many /hpf; Red Blood Cells, Urine 25-50 /hpf (0-2); Renal Epithelial Few /hpf (0-Rare); Squamous Epithelial Cells Rare /hpf (Few); White Blood Cells, Urine 50-100 /hpf (0-5)
== END ==
LOC: LAB 13:04 → LAB SHORT 13:04
PROVIDERS: Obstetrics & Gynecology Female Pelvic Medicine and Reconstructive Surgery
DX: R30.0 Dysuria (principal)
CPT/HCPCS: 81001; 87077; 87086; 87186

== ENCOUNTER → 2022-09-17 | Outpatient (CLI) | payer MEDICARE, OTHER ==
[2022-09-17 17:30] LABS: Source, Urine Voided
[2022-09-17 18:16] LABS: Appearance, Urine Cloudy (Clear); Bilirubin, Urine Neg (Neg); Blood, Urine 1+ (Neg); Color, Urine Yellow (P-Yellow); Glucose Qualitative, Urine Neg (Neg); Ketones, Urine 1+ (Neg); Leukocyte Esterase, Urine 1+ (Neg); Nitrite, Urine Neg (Neg); Protein, Urine Neg (Neg); Specific Gravity, Urine 1.015 (1.003-1.022); Urobilinogen, Urine NORM (Normal)
[2022-09-17 18:39] LABS: Bacteria Many /hpf; Mucus Light (0-Heavy); Red Blood Cells, Urine 0-2 /hpf (0-2); Squamous Epithelial Cells Rare /hpf (Few); White Blood Cells, Urine 0-2 /hpf (0-5)
[2022-09-17 18:40] LABS: Amorphous Mod (0-Heavy)
== END | disposition home or self-care (01) ==
LOC: LAB 17:27 → LAB SHORT 17:27
PROVIDERS: Obstetrics & Gynecology Female Pelvic Medicine and Reconstructive Surgery
DX: R82.90 Unspecified abnormal findings in urine (principal)
CPT/HCPCS: 81001; 87086

== ENCOUNTER → 2022-10-12 | Outpatient (CLI) | payer MEDICARE, OTHER ==
[2022-10-12 17:40] LABS: Appearance, Urine Clear (Clear); Bilirubin, Urine Neg (Neg); Blood, Urine Neg (Neg); Color, Urine Yellow (P-Yellow); Glucose Qualitative, Urine Neg (Neg); Ketones, Urine Neg (Neg); Leukocyte Esterase, Urine Neg (Neg); Nitrite, Urine Neg (Neg); Protein, Urine Neg (Neg); Specific Gravity, Urine 1.015 (1.003-1.022); Urobilinogen, Urine NORM (Normal)
== END | disposition home or self-care (01) ==
LOC: LAB 09:30 → LAB SHORT 09:30 → LAB FUT 09-17 16:10 → EDSTATUS 10-13 10:30
PROVIDERS: Obstetrics & Gynecology Female Pelvic Medicine and Reconstructive Surgery
DX: R30.9 Painful micturition, unspecified (principal)
CPT/HCPCS: 81003; 87086

== ENCOUNTER 2022-12-15 07:44 | Day surgery (SDC) | payer MEDICARE, OTHER ==
[~2022-12-15] VITALS: Ht 160 cm; Wt 56.1 kg
[~2022-12-15 07:44] MED LIST changes: +ALBU2.5V5 INH; +DUO-NEB; +LIDO700A20 TOP; +MORPHINE PO; +Nicoderm Cq1 EACH TOP; +OXYCODONE PO; +Percocet 5-3251 EACH PO; +QUET100 PO
[2022-12-15 08:38] VITALS: BP 133/79
--- NOTE | 2022-12-15 09:30 | NUR ---
12/15/22 0930 Douglas Del Valle PT ARRVED TO OR WITH NIPPLE PIERCINGS IN, RN PROTECTED WITH CLEAR TAPE. PTS NAVEL REDDENED ON ARRIVAL.
[2022-12-15 10:00] VITALS: BP 141/89
[2022-12-15 10:05] VITALS: BP 139/94
[2022-12-15 10:15] VITALS: BP 117/87
[2022-12-15 10:30] VITALS: BP 133/96
--- NOTE | 2022-12-15 10:50 | NUR ---
DISCHARGE NOTE PT A&OX4, BREATHING RA, VSS, TOLERATING PO FLUIDS AND FOOD, NO COMPLAINTS. PT DISCHARGED WITH PAIN RX IN DISCHARGE FOLDER. Discharge instructions reviewed with patient. Patient verbalizes understanding. Copy given to patient to take home.ABLE TO DRESS INDEPENDENTLY C RN AT BEDSIDE. Dressing to procedure site clean, dry, intact with no visible drainage, swelling, erythema or bruising noted. Discharged via wheelchair to private car for ride home.
== END 2022-12-15 10:45 | disposition home or self-care (01) ==
LOC: ORSCMMR 07:44 → ORD 09:00 → ORSCMMR 10:45
PROVIDERS: Surgery
PROC: 0WQF0ZZ Repair Abdominal Wall, Open Approach (ICD-10-PCS; principal; 2022-12-15 09:00)
DX: K43.6 Other and unspecified ventral hernia with obstruction, without gangrene (principal); F17.210 Nicotine dependence, cigarettes, uncomplicated; E03.9 Hypothyroidism, unspecified; K21.9 Gastro-esophageal reflux disease without esophagitis; J44.9 Chronic obstructive pulmonary disease, unspecified; B18.2 Chronic viral hepatitis C; Z79.899 Other long term (current) drug therapy
CPT/HCPCS: A9270; J0690; J1100; J1885; J2250; J2405; J2704; J3010; J7120

== ENCOUNTER 2023-02-11 12:57 | Emergency (ER) | payer MEDICARE, OTHER ==
[~2023-02-11] VITALS: Ht 160 cm; Wt 54.4 kg
== END 2023-02-11 18:28 | disposition home or self-care (01) ==
LOC: ER 12:57
DX: F19.10 Other psychoactive substance abuse, uncomplicated (principal); F17.210 Nicotine dependence, cigarettes, uncomplicated; Z88.8 Allergy status to other drugs, medicaments and biological substances; Z79.899 Other long term (current) drug therapy
CPT/HCPCS: 99285-25

== ENCOUNTER 2023-03-02 15:11 | Inpatient (IN) | payer MEDICARE, OTHER ==
[~2023-03-02] VITALS: Ht 170.2 cm; Wt 52.3 kg
[2023-03-02 16:10] LABS: BASOPHILS ABSOLUTE AUTO 0.04 K/mm3 (0.00-0.23); BASOPHILS PERCENT AUTO 1 % (0-2); EOSINOPHILS ABSOLUTE AUTO 0.01 K/mm3 (0.00-0.68); EOSINOPHILS PERCENT AUTO 0 % (0-6); Hematocrit 41.4 % (33.0-51.0); Hemoglobin 14.2 g/dL (11.5-16.0); IMMATURE GRAN ABSOLUTE AUTO 0.02 K/mm3 (0.00-0.10); IMMATURE GRAN PERCENT AUTO 0 % (0-1); LYMPHOCYTES PERCENT AUTO 13 % (21-46); MONOCYTES ABSOLUTE AUTO 0.26 K/mm3 (0.16-1.47); MONOCYTES PERCENT AUTO 4 % (4-13); Mean Corpuscular HGB 32.6 pg (26.0-34.0); Mean Corpuscular HGB Conc 34.3 g/dL (31.5-36.5); Mean Corpuscular Volume 95 fL (80-100); Mean Platelet Volume 9.9 fL (9.1-12.4); NEUTROPHILS ABSOLUTE AUTO 4.83 K/mm3 (1.96-9.15); NEUTROPHILS PERCENT AUTO 81 % (41-73); Platelet Count 264 K/mm3 (150-400); RDW Coefficient Variation 12.4 % (11.7-14.2); RDW Standard Deviation 43.5 fL (35.1-46.3); Red Blood Cell Count 4.36 M/mm3 (3.80-5.20); White Blood Cell Count 5.96 K/mm3 (4.00-11.30)
[2023-03-02 16:27] LABS: Albumin, Blood 3.8 g/dL (3.4-5.0); Bilirubin, Total 0.4 mg/dL (0.1-1.0); Bun/Creatinine Ratio 14.3 (12.0-20.0); Calcium, Blood 9.4 mg/dL (8.5-10.1); Creatinine, Blood 0.56 mg/dL (0.40-1.00); Globulin, Blood 3.8 g/dL (2.2-4.0); Potassium, Blood 3.6 mmol/L (3.5-5.5); Total Protein, Blood 7.6 g/dL (6.4-8.2)
[2023-03-02] MEDS ORDERED: Percocet 5-3251 EACH PO ×2 (18:03→18:04)
[2023-03-02 20:05] LABS: Source, Urine Clean Catch
[2023-03-02 20:15] LABS: Appearance, Urine Clear (Clear); Bilirubin, Urine Neg (Neg); Blood, Urine 1+ (Neg); Glucose Qualitative, Urine Neg (Neg); Ketones, Urine Neg (Neg); Leukocyte Esterase, Urine Neg (Neg); Nitrite, Urine Neg (Neg); Protein, Urine Neg (Neg); Urobilinogen, Urine NORM (Normal)
[2023-03-02 20:52] LABS: Color, Urine Pale Yellow (P-Yellow)
[2023-03-02 20:53] LABS: Bacteria Few /hpf; Red Blood Cells, Urine 0-2 /hpf (0-2); Squamous Epithelial Cells Few /hpf (Few); White Blood Cells, Urine 0-2 /hpf (0-5)
--- NOTE | 2023-03-02 23:22 | NUR ---
03/02/23 2322 Katie Rousseau 500 MG FLAGYL GIVEN IVPB AT [address] BALLARD INTRAOPERATIVELY
[2023-03-03] VITALS (18 sets, daily range): BP systolic 93–174; BP diastolic 64–99
--- NOTE | 2023-03-03 02:51 | NUR ---
PATIENT ARRIVED TO FLOOR @0045. S/P EX LAP WITH PIC DRSSING. NG TUBE TO LOW INT. SX. VIALS OBTAINED, PATIENT ON 2L NC O2 SPO2 @ 98%. MEDICATED FOR PAIN PER EMAR. OREITNED TO THE ROOM. BED IN LOW POSTION AND CALL LIGHT IN REACH.
[2023-03-03 04:43] LABS: BASOPHILS ABSOLUTE AUTO 0.02 K/mm3 (0.00-0.23); BASOPHILS PERCENT AUTO 0 % (0-2); EOSINOPHILS PERCENT AUTO 0 % (0-6); Hematocrit 40.7 % (33.0-51.0); Hemoglobin 13.8 g/dL (11.5-16.0); IMMATURE GRAN ABSOLUTE AUTO 0.01 K/mm3 (0.00-0.10); IMMATURE GRAN PERCENT AUTO 0 % (0-1); LYMPHOCYTES ABSOLUTE AUTO 0.42 K/mm3 (0.84-5.20); LYMPHOCYTES PERCENT AUTO 8 % (21-46); MONOCYTES ABSOLUTE AUTO 0.48 K/mm3 (0.16-1.47); MONOCYTES PERCENT AUTO 9 % (4-13); Mean Corpuscular HGB 32.3 pg (26.0-34.0); Mean Corpuscular HGB Conc 33.9 g/dL (31.5-36.5); Mean Corpuscular Volume 95 fL (80-100); NEUTROPHILS ABSOLUTE AUTO 4.69 K/mm3 (1.96-9.15); NEUTROPHILS PERCENT AUTO 83 % (41-73); Platelet Count 212 K/mm3 (150-400); RDW Coefficient Variation 12.6 % (11.7-14.2); RDW Standard Deviation 43.9 fL (35.1-46.3); Red Blood Cell Count 4.27 M/mm3 (3.80-5.20); White Blood Cell Count 5.62 K/mm3 (4.00-11.30)
[2023-03-03 05:06] LABS: Albumin, Blood 3.1 g/dL (3.4-5.0); Albumin/Globulin Ratio 1.1 (0.8-1.8); Bilirubin, Total 0.4 mg/dL (0.1-1.0); Calcium, Blood 8.3 mg/dL (8.5-10.1); Creatinine, Blood 0.53 mg/dL (0.40-1.00); Globulin, Blood 2.9 g/dL (2.2-4.0); Potassium, Blood 3.4 mmol/L (3.5-5.5)
--- NOTE | 2023-03-03 05:18 | NUR ---
SHIFT SUMMARY PATIENT S/P EXP LAP WITH MIDLINE AND PICCO SLIGHT SHADOWING, DRESSING IS COMPRESSED AND INTACT. NG TUBE TO LOW INT. SX. DRAINING BROWN LIQUID. BOWEL TONES HYPOACTIVE. DAVE CATH IS PATENT AND DRAINING CLEAR YELLOW URINE. STAT LOCK IN PLACE. MEDICATED FOR PAIN PER EMAR PRN. DENIES N/V. VSS, BP IS ELEVATED PRIOR TO PAIN MEDICATION. SPB 170S, DECREASED TO 150S. AOX4, CALL LIGHT IN REACH. WILL REPORT TODAY SAMUEL.
--- NOTE | 2023-03-03 09:19 | NUR ---
DR MAYA IN TO SEE PT.
--- NOTE | 2023-03-03 16:07 | NUR ---
PT AGITATED/ANGRY DUE TO PAIN MANAGEMENT. DOES NOT FEEL PAIN IS BEING MANAGED ADEQUATELY DUE TO HX OF CHRONIC PAIN. CALLED DR HAMILTON AND DISCUSSED. GAVE OT DOSE 5 MG OXYCODONE IN ADDITION TO MORPHINE FLUOROSCOPE OPERATOR. IN MEANTIME, DR MAYA CALLED AND ORDERS OBTAINED FOR ANOTHER 5MG DOSE OF OXYCODONE NOW FOR A TOTAL OF 10 MG. REASSESS PAIN IN [address] MAYA OF PT'S PAIN STATUS. POOR URINARY OUTPUT NOTED IN DAVE. ORDERS OBTAINED TO KEEP DAVE CATH TONIGHT, GIVE 1L BOLUS LR.
[2023-03-04 02:23] VITALS: BP 108/75
[2023-03-04 04:46] LABS: Hematocrit 31.6 % (33.0-51.0); Hemoglobin 10.4 g/dL (11.5-16.0); Mean Corpuscular HGB 32.2 pg (26.0-34.0); Mean Corpuscular HGB Conc 32.9 g/dL (31.5-36.5); Mean Corpuscular Volume 98 fL (80-100); Mean Platelet Volume 10.1 fL (9.1-12.4); Platelet Count 143 K/mm3 (150-400); RDW Coefficient Variation 12.9 % (11.7-14.2); RDW Standard Deviation 45.9 fL (35.1-46.3); Red Blood Cell Count 3.23 M/mm3 (3.80-5.20); White Blood Cell Count 6.66 K/mm3 (4.00-11.30)
[2023-03-04 05:03] LABS: Bun/Creatinine Ratio 24.9 (12.0-20.0); Calcium, Blood 8.2 mg/dL (8.5-10.1); Creatinine, Blood 0.52 mg/dL (0.40-1.00); Potassium, Blood 3.9 mmol/L (3.5-5.5)
--- NOTE | 2023-03-04 06:12 | NUR ---
EOS NOTE: PATIENT IS A/OX4, VERY ANXIOUS. REQUESTED ICE CHIPS FREQUENTLY, PATIENT WAS EDUCATED ON THE IMPORTANCE OF MAINTAINING NPO STATUS DUE TO HYPOACTIVE BOWEL SOUNDS AND LACK OF PASSING GAS. PATIENT STATED SHE WAS ABLE TO EAT FULL MEALS DURING DAY SHIFT, DOCUMENTATION/MD ORDERS/REPORT FROM PREVIOUS NURSE SAY OTHERWISE. WILL CONTINUE WITH NPO STATUS WITH SOME ICE CHIPS AND SIPS OF WATER WITH MEDS. PATIENT DOES NOT SEEM TO BE COMPREHENDING WHY SHE IS NPO, HAS BEEN EDUCATED MULTIPLE TIMES AND BY EOS PATIENT WAS ABLE TO REPEAT BACK WHY SHE IS NPO. HAS MAINTAINED A/0X4, NO CHANGE TO MENTATION. MANIPULATIVE BEHAVIOR HAS BEEN NOTED AND MENTIONED ACROSS MOST SHIFTS. MD/CHARGE NURSE AWARE. VSS. LUMBER CHAIN OFFBEARER PUMP ADEQUATE FOR PAIN, PATIENT HAS NOT REQUESTED OTHER PAIN MEDS AT THIS TIME AND STATES SHE IS COMFORTABLE AT THIS TIME. WILL CONTINUE TO MONITOR.
[2023-03-04 07:24] VITALS: BP 108/71
--- NOTE | 2023-03-04 10:00 | NUR ---
THIS NURSE CAME INTO PATIENTS ROOM AFTER SHE USED HER CALL LIGHT. PATIENT REPORTED TO THIS NURSE "MY IV I THINK IS LEAKING". THIS NURSE FLUSHED THE IV WITH 5ML OF NS AND IT DID START LEAKING. THIS NURSE THEN SALINE LOCKED THAT IV AND EDUCATED THE PATIENT THAT THIS NURSE HAD TO GET SUPPLIES TO GET THAT LEAKING IV DISCONTINUED AND TO HAVE A NEW ONE PLACED. PATIENT VERBALIZED UNDERSTANDING BUT CONTINUED TO YELL THAT SHE WAS IN PAIN WHILE LAYING IN BED WITH CALL LIGHT IN REACH. THIS NURSE WENT TO GET THE IV SUPPLIES AND CAME BACK AND THE PATIENT THREW HER ICED WATER AT THIS NURSE AND THE EARLY CHILDHOOD. THIS NURSE AND THE EARLY CHILDHOOD WERE STANDING AT THE DOOR WAY WITH THE ICE WATER ALL ON THE GROUND/ON OUR CLOTHING. THIS NURSE THEN CAME INTO THE ROOM AND EDUCATED THE PATIENT THAT STAFF IS TO NEVER BE TREATED LIKE THAT. PATIENT CONTINUED TO YELL STATING "I DID NOT THROW THAT IT TIPPED OVER! DO NOT PUT WORDS IN MY MOUTH! I'M IN PAIN!". THIS NURSE THEN EDUCATED PATIENT THAT BOTH THE EARLY CHILDHOOD AND THIS NURSE WITNESSED HER THROWING THE ICED WATER AND AGAIN EDUCATED THE PATIENT THAT STAFF IS TO NOT BE TREATED WITH THROWING LIQUIDS OR ANY ITEMS AT STAFF. THIS NURSE ALSO EDUCATED PATIENT THAT THIS NURSE WOULD BRING PAIN MEDICATIONS TO HER ONCE THE ICE WATER WAS CLEANED UP DUE TO IT BEING A SLIPPING HAZARD. PATIENT VERBALIZED UNDERSTANDING OF EDUCATION AND CONTINUED TO LAY IN BED WITH CALL LIGHT IN REACH. THIS NURSE ALSO NOTIFIED MARCELA BAKER THE CHARGE NURSE OF THE SITUATION.
[2023-03-04] MEDS ORDERED: OXYC5 PO (10:08)
[2023-03-04] MEDS ORDERED: Percocet 5-3251 EACH PO (10:09)
[2023-03-04] MEDS ORDERED: NARCAN4 M1 (10:10)
[2023-03-04] MEDS ORDERED: IPRAT-ALBUT 0.5-3 ML INH (10:12)
--- NOTE | 2023-03-04 13:32 | NUR ---
MAD consult received for patient throwing things and being disrespectful. Chart reviewed and spoke with nursing. Patient was receiving pain meds at the time of visit. Family and doctor had been to see patient and she was feeling better. Patient is not medically stable for discharge. Nursing instructed to notify the nursing supervisor refining and ask them to come with Security should the patient throw things again. Vick Ahumada asked to follow up with the patient. Pain meds changed by physician to better improve pain, which hopefully will help.
[2023-03-04 14:31] VITALS: BP 105/75
--- NOTE | 2023-03-04 16:42 | NUR ---
SHIFT SUMMARY: POD 3 EX LAP WITH ILEOCECECTOMY THIS AFTERNOON PATIENT HAS BECOME MORE PLEASANT COMPARED TO THIS MORNING (SEE PREVIOUS NOTE). PAIN IS MANAGED WITH GABAPENTIN, TYLENOL, 15MG OF OXY, AND IV 1MG OF DILAUDID AND IV TORADOL. HER ABD MIDLINE JAIR IS C/D/I AND IS COMPRESSED. SHE IS TOLERATING HER CLEAR LIQUID DIET WITH NO NAUSEA/VOMITING THROUGHOUT SHIFT. PATIENT IS TRYING FULL LIQUIDS FOR DINNER TONIGHT. PATIENT IS VOIDING AND IS A SBA TO THE BATHROOM. PATIENT IS LAYING BACK IN BED WITH CALL LIGHT IN REACH. THE PLAN IS TO ENCOURAGE INCREASE IN AMBULATION AND TO CONTINUE TO MANAGE PAIN.
[2023-03-04 20:11] VITALS: BP 126/85
[2023-03-05 02:57] VITALS: BP 119/82
--- NOTE | 2023-03-05 04:49 | NUR ---
SHIFT SUMMARY AOx4. POD 3-EX LAP c ILEOCECECTOMY. MIDLINE JAIR DRESSING TO SUCTION c SCANT SHADOWING ON DRESSING, INTACT. REPORTS 7-9/10 ABD PAIN WHILE AWAKE, MEDICATED 1x c SCHEDULED 10MG OXYCONTIN, TYLENOL, TORADOL & 15MG OXYCODONE. PT REPORTS MIN PAIN RELIEF, HOWEVER ABLE TO FALL ASLEEP & REST COMFORTABLY W/O ANY NONVERBAL S/SX PAIN. HYPOACTIVE BT. DENIES N/V. DENIES PASSING FLATUS, IS BELCHING ALOT, HAD 2 BM TONIGHT-1 SM & 1 LRG BROWN SOFT. CALL LIGHT IN REACH & PT ABLE TO MAKE NEEDS KNOWN, WILL MONITOR.
[2023-03-05 07:09] VITALS: BP 117/76
--- NOTE | 2023-03-05 16:35 | NUR ---
SHIFT SUMMARY POD 3 EX LAP PICCO DRESSING REMAINS CDI WITH SCANT DRY SEROSANGUINOUS DRAINAGE ON IT. PT PASSING GAS AND HAVING MULTIPLE BM'S, REPORTS SIGNIFICANT GAS PAIN DURING SHIFT. MEDICATION PER EMAR. PT AMBULATING WELL TO RESTROOM AND BACK. TOLERATING DIET WELL, NO NAUSEA WITH EATING.
[2023-03-05 20:53] VITALS: BP 159/103
[2023-03-06 03:46] VITALS: BP 134/90
[2023-03-06 05:31] LABS: Hematocrit 39.3 % (33.0-51.0); Hemoglobin 13.3 g/dL (11.5-16.0); Mean Corpuscular HGB 32.4 pg (26.0-34.0); Mean Corpuscular HGB Conc 33.8 g/dL (31.5-36.5); Mean Corpuscular Volume 96 fL (80-100); Mean Platelet Volume 10.1 fL (9.1-12.4); Platelet Count 290 K/mm3 (150-400); RDW Coefficient Variation 12.4 % (11.7-14.2); RDW Standard Deviation 43.6 fL (35.1-46.3); White Blood Cell Count 3.08 K/mm3 (4.00-11.30)
[2023-03-06 05:52] LABS: Calcium, Blood 9.7 mg/dL (8.5-10.1); Creatinine, Blood 0.65 mg/dL (0.40-1.00); Potassium, Blood 3.7 mmol/L (3.5-5.5)
--- NOTE | 2023-03-06 06:19 | NUR ---
SHIFT SUMMARY AOX4. VSS. POD 4-EX LAP c ILEOCECECTOMY, MIDLINE JAIR DRESSING C/D/I c SUCTION. ABD TENDER TO PALPATION. ACTIVE BT A4Q. PT REPORTED NAUSEA 2x MEDICATED c ZOFRAN & PO PHENERGAN, NO EMESIS THIS SHIFT. PT REPORTED ACID REFLUX c INCREASE IN BELCHING, MEDICATED c TUMS & PT STATED REFLUX GONE. DENIES ANY BM OR PASSING GAS TONIGHT. PER REPORT PT HAD MULT LOOSE STOOL ON 03/05. REPORTS CONSTANT / PELVIC & LOW BACK PAIN, MOANS OUT FREQUENTLY & ASKS FOR PAIN MEDS ROUGHLY Q1-2 HRS. STATES NO RELIEF FROM PAIN, HOWEVER IS ABLE TO REST QUIETLY. DENIES DYSPNEA. REPORTS FEELING LIKE SHE'S HAVING URINARY RETENTION THIS AM, BLADDER SCAN SHOWED 154ML. PT UP c 1 ASSIST, GB & FWW TO AMBULATE HALLS 1x LAST NIGHT. CALL LIGHT IN REACH.
[2023-03-06 08:17] VITALS: BP 142/94
--- NOTE | 2023-03-06 09:17 | NUR ---
PER DR. PERALTA PLACE PATIENT ON 50ML/HR OF IVF, MAKE NPO WITH VERY MINIMAL ICE CHIPS. PT IS BLOATED THIS MORNING COMPARED TO PRIOR. DENIES FLATUS OVER NIGHT. PT AWARE AND AGREEABLE TO NEW PLAN. CONTINUING TO ENCOURAGE PATIENT TO MOBILIZE TO PROMOTE MOTILITY. PROVIDED RECLINER FOR COMFORT WHEN OOB.
[2023-03-06 10:23] LABS: Magnesium, Blood 1.7 mg/dL (1.6-2.4); Phosphorus, Blood 4.5 mg/dL (2.5-4.9)
[2023-03-06 16:11] VITALS: BP 150/102
--- NOTE | 2023-03-06 16:53 | NUR ---
SHIFT SUMMARY POD 4 PT REMAINS DISTENDED AND UNCOMFORTABLE. DENIES PASSING ANY FLATUS. PT HAS BEEN AMBULATING EVERY 2 HOURS AFTER PAIN MEDICATION. TOLERATES AMBULATION WELL WITH NO WEAKNESS. SHE IS FOLLOWING HER NPO ORDERS WELL, WITH MINIMAL ICE CHIP INTAKE. DRESSING REMAINS CDI. PT CALLS APPROPRIATLY. WILL CONTINUE TO ENCOURAGE AMBULATION.
[2023-03-06 20:17] VITALS: BP 160/101
[2023-03-07] VITALS (17 sets, daily range): BP systolic 128–180; BP diastolic 84–109
--- NOTE | 2023-03-07 04:20 | NUR ---
ELEVATED BP PT CONTINUES TO HAVE ELEVATED BP OF 168/106 MOST RECENTLY, REASSESSED MANUALLY AT 156/98. IT APPEARS PT TENSES ARM DURING VS ASSESSMENTS. ENCOURAGED TO FULLY RELAX ARM DURING BP FOR MOST ACCURATE RESULTS. WILL REASSESS WHEN PAIN IS BETTER CONTROLLED.
[2023-03-07 04:32] LABS: Hematocrit 37.3 % (33.0-51.0); Hemoglobin 12.8 g/dL (11.5-16.0); Mean Corpuscular HGB 32.3 pg (26.0-34.0); Mean Corpuscular HGB Conc 34.3 g/dL (31.5-36.5); Mean Corpuscular Volume 94 fL (80-100); RDW Coefficient Variation 12.1 % (11.7-14.2); RDW Standard Deviation 42.3 fL (35.1-46.3); Red Blood Cell Count 3.96 M/mm3 (3.80-5.20); White Blood Cell Count 3.01 K/mm3 (4.00-11.30)
[2023-03-07 04:35] LABS: Mean Platelet Volume 10.3 fL (9.1-12.4); Platelet Count 324 K/mm3 (150-400)
[2023-03-07 04:38] LABS: Bun/Creatinine Ratio 42.8 (12.0-20.0); Calcium, Blood 9.9 mg/dL (8.5-10.1); Creatinine, Blood 0.84 mg/dL (0.40-1.00); Potassium, Blood 3.6 mmol/L (3.5-5.5)
[2023-03-07 05:02] LABS: BAND PERCENT MAN 32 % (0-8); BASOPHILS PERCENT MAN 0 % (0-2); EOSINOPHILS PERCENT MAN 0 % (0-6); LYMPHOCYTES ABSOLUTE MAN 0.33 K/mm3 (0.84-5.20); LYMPHOCYTES PERCENT MAN 11 % (21-46); MONOCYTES ABSOLUTE MAN 0.48 K/mm3 (0.16-1.47); MONOCYTES PERCENT MAN 16 % (4-13); NEUTROPHILS ABSOLUTE MAN 2.19 K/mm3 (1.96-9.15); SEG NEUTROPHILS PERCENT MAN 41 % (41-73); TOTAL CELLS COUNTED 100
--- NOTE | 2023-03-07 05:18 | NUR ---
SHIFT SUMMARY POD 5, ILEOCECTOMY. MIDLINE JAIR DRESSING INTACT W/ SCANT SPOTS OF DRAINAGE VISIBLE. PT CONTINUES TO C/O ABD PAIN W/ MOANING T/O NIGHT AND 9/10 PAIN THAT MEDICATED DECREASES TO 7-8/10. PT REQUESTING PAIN MEDS Q2 OR SOONER. PT ABD FIRM TO PALPATION, TYMPANIC BT T/O ABD, AND TENDER TO TOUCH. PT REPORTS PAIN T/O ABD FROM PELVIC TO RIBS. MINIMAL DARK PAMELA URINE VISUALIZED AND PT REPORTS DIFFICULTY TO VOID. BLADDER SCAN COMPLETED W/ 232 DOCUMENTED. BP CONTINUES TO BE ELEVATED W/ REASSESSED AT 150/88 MANUALLY, DOWN FROM PREVIOUS. IV FLUIDS CONTINUED AT 50/HR AND MINIMAL ICE CHIPS ALLOWED. PT AMBULATED IN HALLWAY 2X TO NURSE STATION AND SEVERAL TIMES TO BATHROOM W/ FWW. DR MAYA TO F/U W/ PT TODAY. CALL LIGHT IN REACH.
--- NOTE | 2023-03-07 13:41 | NUR ---
Spiritual care visit conducted. Patient is lying in bed, on her side, and moaning in pain and requesting pain medications. She explains about her surgery and the improvement from it and then some steps backwards that have increased her pain levels. She tells me that her sisters from [place] came to visit her at the hosptial over the weekend and pt very much appreciated it. Patient asks for prayer which I gladly supply. I reinforce helpful attitudes and practices, normalize her feelings and fears and provide therapeutic listening and a calming presence. Patient responded well and showed signs of reduced stress. I followed up with pt's SAMUEL Jensen about pain meds for the patient and I was told that she was on her way to pick them up [place]. I will continue to remain available to patient and family.
--- NOTE | 2023-03-07 15:01 | NUR ---
ATTEMPTED NG TUBE PLACEMENT ATTEMPTED TO PLACE AND NG TUBE AT 1445. DURING PLACEMENT RESISTANCE WAS MET, GREENHOUSE SPECIALIST JENNIFER NOTIFIED AND ARRIVED TO ASSIST. JENNIFER RETRACTED THE NG TUBE APPROXIMATELY 2-3 INCHEST AND ATTEMPTED TO COMPLETE INSERTION, RESISTANCE WAS MET AGAIN. STOPPED ATTEMPTED INSERTION, TAPPED NG IN PLACE AND REACHED OUT TO DR. MAYA. DR. MAYA ORDERED AN XRAY, WAITING FOR RESULTS. PT IS ABLE TO TALK CLEARLY, RESP RATE AND EFFORT UNCHANGED. WAITING FOR XRAY RESULTS AT THIS TIME.
--- NOTE | 2023-03-07 17:00 | NUR ---
DR. MAYA PRESENT IN ROOM. SHE ATTEMPTED TO ADVANCE NG TUBE. DR. MAYA WAS UNABLE TO ADVANCE THE TUBE AND IT WAS REMOVED. UNABLE TO LOCATE SMALLER NG TUBE. DR. MAYA ATTEMPTED AGAIN WITH LIDOCAINE JELLY. THE NG TUBE CONTINUED TO MEET RESISTANCE AND FURTHER ATTEMPTS BY DR. MAYA WERE STOPPED. DR. MAYA ORDERED ATIVAN AND REQUESTED THAT THIS RN ATTEMPT NG PLACEMENT LATER AFTER ATIVAN.
--- NOTE | 2023-03-07 18:33 | NUR ---
ELEVATED BP DR. ESCOBAR NOTIFIED OF ELEVATED BP. HYDRALAZINE ORDERED AND GIVEN PER ORDER. BP IMPROVED TO 162/102 AFTER HYDRALAZINE WAS GIVEN.
--- NOTE | 2023-03-07 19:00 | NUR ---
ATIVAN GIVEN AND A FINAL ATTEMPT MADE TO PLACE NG TUBE. LIDOCAINE USED AGAIN. 16F NG TUBE USED PER DR. MAYA REQUEST. NG TUBE MET RESISTANCE, ATTEMPTED TO REPOSITION TUBE AND IT CONTINUED TO MEET RESISTANCE. ATTEMPT WAS STOPPED AND NG TUBE WAS REMOVED.
[2023-03-07 19:47] LABS: Hemoglobin 11.9 g/dL (11.5-16.0); Mean Corpuscular HGB 32.2 pg (26.0-34.0); Mean Corpuscular Volume 95 fL (80-100); Mean Platelet Volume 9.5 fL (9.1-12.4); Platelet Count 352 K/mm3 (150-400); RDW Coefficient Variation 12.3 % (11.7-14.2); RDW Standard Deviation 42.6 fL (35.1-46.3); White Blood Cell Count 3.73 K/mm3 (4.00-11.30)
--- NOTE | 2023-03-07 19:57 | NUR ---
SHIFT SUMMARY PT IS POD#[address] MAYA. PT'S ABD HAS BEEN SEVERELY DISTENDED T/O THE DAY, SHE HAS HAD SOME NAUSEA WITH SCANT VOMITING. MULTIPLE ATTEMPTS MADE TO PLACE NG TUBE AND UNSUCCESSFUL (SEE NOTES). THIS EVENING PT IS PALE AND STATES SHE "DOESN'T FEEL RIGHT." DR. MAYA NOTIFIED OF CONCERNS, PER DR. MAYA PLAN TO TAKE PT BACK TO OR TONIGHT. REPORT GIVEN TO AMALIA BAKER.
[2023-03-07 20:03] LABS: International Normalized Ratio 1.04; Prothrombin Time Results 10.9 Sec (9.7-11.5)
[2023-03-07 20:08] LABS: Albumin, Blood 3.1 g/dL (3.4-5.0); Albumin/Globulin Ratio 0.8 (0.8-1.8); Bilirubin, Total 0.4 mg/dL (0.1-1.0); Bun/Creatinine Ratio 53.4 (12.0-20.0); Calcium, Blood 9.4 mg/dL (8.5-10.1); Creatinine, Blood 0.71 mg/dL (0.40-1.00); Globulin, Blood 3.8 g/dL (2.2-4.0); Potassium, Blood 3.6 mmol/L (3.5-5.5); Total Protein, Blood 6.9 g/dL (6.4-8.2)
[2023-03-07 20:36] LABS: BAND PERCENT MAN 29 % (0-8); BASOPHILS PERCENT MAN 0 % (0-2); EOSINOPHILS PERCENT MAN 0 % (0-6); LYMPHOCYTES ABSOLUTE MAN 0.44 K/mm3 (0.84-5.20); LYMPHOCYTES PERCENT MAN 12 % (21-46); METAMYELOCYTE ABSOLUTE MAN 0.03 K/mm3 (0.00-0.00); METAMYELOCYTE PERCENT MAN 1 % (0-0); MONOCYTES ABSOLUTE MAN 0.41 K/mm3 (0.16-1.47); MONOCYTES PERCENT MAN 11 % (4-13); NEUTROPHILS ABSOLUTE MAN 2.83 K/mm3 (1.96-9.15); SEG NEUTROPHILS PERCENT MAN 47 % (41-73); TOTAL CELLS COUNTED 100
[2023-03-08 00:03] VITALS: BP 125/56
[2023-03-08 00:46] VITALS: BP 123/59
[2023-03-08 03:53] VITALS: BP 140/88
[2023-03-08 04:13] LABS: Albumin, Blood 2.5 g/dL (3.4-5.0); Anion Gap 8 mmol/L (6-16); Blood Urea Nitrogen 35 mg/dL (8-24); Bun/Creatinine Ratio 51.6 (12.0-20.0); CO2, Blood 31 mmol/L (21-32); Calcium, Blood 8.4 mg/dL (8.5-10.1); Chloride, Blood 100 mmol/L (98-108); Creatinine, Blood 0.68 mg/dL (0.40-1.00); Glomerular Filtration Rate 97 (60-); Glucose, Blood 104 mg/dL (70-99); Magnesium, Blood 1.9 mg/dL (1.6-2.4); Phosphorus, Blood 3.5 mg/dL (2.5-4.9); Potassium, Blood 3.8 mmol/L (3.5-5.5); Sodium, Blood 139 mmol/L (136-145)
[2023-03-08 04:56] LABS: BASOPHILS ABSOLUTE AUTO 0.03 K/mm3 (0.00-0.23); BASOPHILS PERCENT AUTO 1 % (0-2); EOSINOPHILS PERCENT AUTO 0 % (0-6); Hematocrit 36.9 % (33.0-51.0); Hemoglobin 12.7 g/dL (11.5-16.0); IMMATURE GRAN ABSOLUTE AUTO 0.03 K/mm3 (0.00-0.10); IMMATURE GRAN PERCENT AUTO 1 % (0-1); LYMPHOCYTES ABSOLUTE AUTO 0.51 K/mm3 (0.84-5.20); LYMPHOCYTES PERCENT AUTO 12 % (21-46); MONOCYTES ABSOLUTE AUTO 0.37 K/mm3 (0.16-1.47); MONOCYTES PERCENT AUTO 8 % (4-13); Mean Corpuscular HGB 32.4 pg (26.0-34.0); Mean Corpuscular HGB Conc 34.4 g/dL (31.5-36.5); Mean Corpuscular Volume 94 fL (80-100); Mean Platelet Volume 9.3 fL (9.1-12.4); NEUTROPHILS ABSOLUTE AUTO 3.49 K/mm3 (1.96-9.15); NEUTROPHILS PERCENT AUTO 79 % (41-73); Platelet Count 363 K/mm3 (150-400); RDW Coefficient Variation 12.4 % (11.7-14.2); RDW Standard Deviation 43.1 fL (35.1-46.3); Red Blood Cell Count 3.92 M/mm3 (3.80-5.20); White Blood Cell Count 4.43 K/mm3 (4.00-11.30)
[2023-03-08 07:21] VITALS: BP 104/94
--- NOTE | 2023-03-08 08:03 | NUR ---
SUMMARY PT SLEPT OFF AND ON MOST OF SHIFT SINCE RETURNING FROM OR.PT WOKE THIS AM WITH MULTIPLE REQUESTS FOR EAT AND DRINK. REMINDED PT NO FOOD TO STOMACH AND SIPS/ICE ONLY.PT AWAKE AND REQUESTING PAIN MED AT 0530 WHICH WAS GIVEN PER CAN CLEANER.PT HAD 1 FULL NG CANISTER CHANGED OF GREEN LIQUID,PLUS 600 ML ADDITIONAL GREEN.
--- NOTE | 2023-03-08 10:20 | NUR ---
DR ESCOBAR IN TO SEE PT.
--- NOTE | 2023-03-08 10:32 | NUR ---
PT VISITING WITH GUESTS.
--- NOTE | 2023-03-08 13:50 | NUR ---
PT REFUSING PICC LINE LM FOR DR ESCOBAR ADVISING PT REFUSING PICC. NOTIFIED JOEY/PLASTICS BENCH MECHANIC.
--- NOTE | 2023-03-08 14:49 | NUR ---
PT AGREEABLE WITH W/PICC LINE PLACEMENT AFTER SPEAKING TO DR MAYA. NOW VISITING WITH SPIRITUAL CARE.
[2023-03-08 14:54] VITALS: BP 121/79
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
--- NOTE | 2023-03-08 18:14 | NUR ---
SUMMARY NO ACUTE CHANGES T/O SHIFT. PT ANXIOUS AND PAINFUL. BOTH HAVE IMPROVED SLIGHTLY T/O SHIFT. TAKING ICE, WATER, POPSICLES AND GATORADE PER ORDERS. NG TUBE TO LIS DRAINING LARGE AMOUNT OF DARK GREEN FLUID. PT'S DAVE CATH DC'D THIS AM PER ORDERS AND PT HAS BEEN UP TO BSC TO VOID. STARTED PPN PER ORDERS. PT HAS ORDERS FOR PICC LINE PLACEMENT WHEN RN AVAILABLE TO PLACE FOR CPN. CALL LIGHT IN REACH.
[2023-03-08 19:16] VITALS: BP 112/86
[2023-03-09 00:33] VITALS: BP 112/84
[2023-03-09 04:02] VITALS: BP 108/81
[2023-03-09 05:35] LABS: Anion Gap 2 mmol/L (6-16); Blood Urea Nitrogen 24 mg/dL (8-24); CO2, Blood 42 mmol/L (21-32); Calcium, Blood 8.7 mg/dL (8.5-10.1); Chloride, Blood 95 mmol/L (98-108); Creatinine, Blood 0.59 mg/dL (0.40-1.00); Glomerular Filtration Rate 101 (60-); Glucose, Blood 143 mg/dL (70-99); Magnesium, Blood 2.3 mg/dL (1.6-2.4); Phosphorus, Blood 2.4 mg/dL (2.5-4.9); Potassium, Blood 3.2 mmol/L (3.5-5.5); Sodium, Blood 139 mmol/L (136-145); Triglycerides 223 mg/dL (30-160)
--- NOTE | 2023-03-09 07:22 | NUR ---
SHIFT SUMMARY NOC. PT VERBALIZED RESTING WELL THIS SHIFT. PT HAD AN EPISODE OF REPORTED ANXIETY AND WAS RELIEVED WITH NEEDED ATIVAN. PT MEDICATED FOR PAIN WITH REPORTED RELIEF PER EMAR ORDERS. PT ABLE TO AMBULATE TO THE BEDSIDE COMMODE AND VOIDING POST DAVE REMOVAL LAST SHIFT. PT TOLERATING ICE CHIPS AND POPSICLES. PT'S NG TUBE IS CONNECTED TO LOW INTERMITTENT SUCTION AND PRODUCING OUTPUT. JAIR DRESSING CLEAN, DRY, COMPRESSED, AND INTACT.
[2023-03-09 07:38] VITALS: BP 115/83
--- NOTE | 2023-03-09 14:53 | NUR ---
PICC LINE NOW IN PLACE, DIETITION NOTIFIED. SEE NEW ORDER FOR CPN
--- NOTE | 2023-03-09 15:37 | NUR ---
SUMMARY: PT IS POD2 NEEDLE DECOMPRESSION AND LYSIS OF ADHESIONS.A/O, VSS, ANXIOUS AT TIMES. PLEASENT WITH STAFF TODAY. SURGICAL SITE WNL, JAIR INTACT. NGT TO LIS, PT OK TO HAVE POPCICLES AND CLEAR LIQ PER DR. MAYA. THOSE AMOUNTS SUBTRACTED FROM TOTAL OUTPUT FROM NG. PT HAS DENIED N/V, REPORTS PASSING SOME FLATUS. ABLE TO TAKE A FEW WALKS TODAY, UP TO COMMODE FREQUENTLY, SBA WITH LINES. PT CAN OFTEN BE IMPULSIVE AND MOVE TO EDGE OF BED WITHOUT ASSIST AT TIMES, SO BED ALARM SET. PT CONTINUES TO REQUEST DILAUDID Q2 AND ATIVAN Q6, SEE EMAR. CONTINIOUS BI OX IN PLACE AND 2L O2 NEEDED FOR SLEEP. PICC LINE PLACED AND CPN TO START TONIGHT. NO ACUTE SAFETY CONCERNS
[2023-03-09 19:22] VITALS: BP 112/75
--- NOTE | 2023-03-10 01:33 | NUR ---
CORRECTION TO SHIFT ASSESSMENT DOCUMENTATION 03/09/2023. SHIFT ASSESSMENT DOCUMENTED FOR 03/09/2023 AT 0800 WAS PERFORMED AT 2000 ON 03/09/2023. THIS WAS A DOCUMENTATION ERROR OF TIME.
[2023-03-10 04:45] LABS: BASOPHILS ABSOLUTE AUTO 0.05 K/mm3 (0.00-0.23); BASOPHILS PERCENT AUTO 1 % (0-2); EOSINOPHILS ABSOLUTE AUTO 0.58 K/mm3 (0.00-0.68); EOSINOPHILS PERCENT AUTO 6 % (0-6); Hematocrit 34.9 % (33.0-51.0); Hemoglobin 11.6 g/dL (11.5-16.0); IMMATURE GRAN ABSOLUTE AUTO 0.16 K/mm3 (0.00-0.10); IMMATURE GRAN PERCENT AUTO 2 % (0-1); LYMPHOCYTES PERCENT AUTO 18 % (21-46); MONOCYTES ABSOLUTE AUTO 0.93 K/mm3 (0.16-1.47); MONOCYTES PERCENT AUTO 10 % (4-13); Mean Corpuscular HGB Conc 33.2 g/dL (31.5-36.5); Mean Corpuscular Volume 96 fL (80-100); Mean Platelet Volume 9.3 fL (9.1-12.4); NEUTROPHILS ABSOLUTE AUTO 6.09 K/mm3 (1.96-9.15); NEUTROPHILS PERCENT AUTO 64 % (41-73); Platelet Count 299 K/mm3 (150-400); RDW Coefficient Variation 12.5 % (11.7-14.2); RDW Standard Deviation 44.1 fL (35.1-46.3); Red Blood Cell Count 3.62 M/mm3 (3.80-5.20); White Blood Cell Count 9.51 K/mm3 (4.00-11.30)
[2023-03-10 05:04] LABS: Albumin, Blood 2.4 g/dL (3.4-5.0); Anion Gap 4 mmol/L (6-16); Blood Urea Nitrogen 24 mg/dL (8-24); Bun/Creatinine Ratio 52.9 (12.0-20.0); CO2, Blood 41 mmol/L (21-32); Calcium, Blood 8.8 mg/dL (8.5-10.1); Chloride, Blood 91 mmol/L (98-108); Creatinine, Blood 0.45 mg/dL (0.40-1.00); Glomerular Filtration Rate 107 (60-); Glucose, Blood 115 mg/dL (70-99); Magnesium, Blood 2.1 mg/dL (1.6-2.4); Phosphorus, Blood 3.3 mg/dL (2.5-4.9); Potassium, Blood 3.3 mmol/L (3.5-5.5); Sodium, Blood 136 mmol/L (136-145)
[2023-03-10 07:15] VITALS: BP 110/84
--- NOTE | 2023-03-10 09:02 | NUR ---
Upon receiving a referral for spiritual care, I visited the patient. She is lying in bed and alert. She talks further about her family unit complications and her concerns for her 92 y/o mother. I get called away to a higher priority situation and cut my visit short but therapeutic listening and prayer are administered. Patient is appreciative and shows signs of reduced stress
[2023-03-10 14:39] VITALS: BP 100/74
--- NOTE | 2023-03-10 16:06 | NUR ---
Spiritual Care Visit. Pt. is awake in bed and welcomes my visit. Pts. older sister is present. Pt. is unsettled because of pain. Facilitate some conversation and establishe some rapport. Prayed for Pt. Pt. and sister verbalized gratitude for the spiritual care visit. Communicated the pain request to the nursing desk. Will remain available to the Pt.
[2023-03-10 19:40] VITALS: BP 94/76
--- NOTE | 2023-03-11 03:58 | NUR ---
SHIFT SUMMARY PATIENT IS AOX4, MEDICATED FOR PAIN PRN. PICCO DRESSING TO MIDLINE IS CDI. TO SX, DRESSING IN COMPRESSED. NG TUBE IS TO LOW INT. SX WITH GREEN LIQUID OUTPUT, CANISTER IS CHANGED X1 THIS SHIFT.PATIENT REPORTS PASSING GAS TODAY. BOWEL TONES IN RUQ. ABD IS TENDER. PATIENT IS AMBULATING IN [place] THIS SHIFT AND ABLE TO STAND AND USE BSC WITH MINIMAL ASSISTANCE. CPN INFUSING IN PICC LINE. GLUCOSE CHECK HAS BEEN BELOW 180. PATIENT ABLE TO REST COMFORTABLY T/O THE NIGHT AND IS CALLING APPROPRIATELY WITH CALL LIGHT. VITAL SIGNS ARE STABLE. CONT. PULSE OX IN PLACE. ON RA SATS ABOVE 93%. WILL REPORT ONCOMING NURSE.
[2023-03-11 04:04] VITALS: BP 95/74
[2023-03-11 05:40] LABS: Magnesium, Blood 2.2 mg/dL (1.6-2.4)
[2023-03-11 05:41] LABS: Bun/Creatinine Ratio 57.7 (12.0-20.0); Calcium, Blood 9.1 mg/dL (8.5-10.1); Creatinine, Blood 0.54 mg/dL (0.40-1.00); Phosphorus, Blood 3.8 mg/dL (2.5-4.9); Potassium, Blood 3.2 mmol/L (3.5-5.5)
[2023-03-11 07:06] VITALS: BP 95/71
--- NOTE | 2023-03-11 07:42 | NUR ---
Spioritual Care Visit. Pt. is awake in bed and welcomes my visit. Pt. is pleasant but frustratewd because of her health. Listen with empathy and a calming presence. Pt. verbalizes that her mother will be bringing in a Ballistics Teacher or wildlife refuge specialist later in the day. Pt. displays evidence of making her needs known. Prayed with Pt. Pt. verbalized gratitude for the spiritual care visit. Will remain available to the Pt. throughout the day.
[2023-03-11 14:51] VITALS: BP 96/70
--- NOTE | 2023-03-11 18:44 | NUR ---
SHIFT SUMMARY POD 9 EXLAP WITH ILIOCECECTOMY, POD 4 EXLAP WITH NEEDLE DECOMPRESSION, A/OX4, VSS, TOLERATING SIPS/CHIPS BUT WAS ON SUCTION UNTIL 1400 WHEN REQUSTED TRIALING CLAMPED IN 4 HOUR INCREMENTS IN WHICH SHE HAS TOLERATED THAT WELL. VERY ANXIOUS AT TIMES WITH STATEMENTS OF HER BEING HERE "FOREVER" AND "FEELING LIKE SHE ISN'T GETTING ANY BETTER", DISCUSSED HER IMPROVEMENTS THAT SHE HAS MADE TODAY INCLUDING PASSING FLATUS AND HAVING A BM AND REQUIRING LESS PAIN MEDICATIONS. SHE WAS UP TO THE CHAIR FOR ABOUT 8 HOURS TODAY. SHE DID REQUIRE SOME SUPPLEMENTAL O2 VIA NC WHICH WAS AT 4L AT TIME OF HER 2ND WALK BUT THIS WAS REDUCED TO 2L TO MAINTAIN SATS OVER 90. NO OTHER EVENTS THIS SHIFT, CALL LIGHT IN REACH, PT EDUCATED ON EXCESSIVE USE OF CALL LIGHT BUT WAS NOT COMPLIANT.
[2023-03-11 20:23] VITALS: BP 103/75
[2023-03-12 02:29] VITALS: BP 104/77
[2023-03-12 08:11] VITALS: BP 94/79
--- NOTE | 2023-03-12 09:01 | NUR ---
SUMMARY PT HAVING LIQ BMS.NG REMAINS TO SX.TAKING PO CLEAR LIQUIDS.
--- NOTE | 2023-03-12 09:22 | NUR ---
OOB TO CHAIR, TOLERATED WELL, NGT TO LIS, C/O 03/20 ABD PAIN, DENIES ANY NAUSEA, REQUESTING MORE POPSICLES AND PAIN MEDS, MEDICATED PER EMAR, CONT. TO MONITOR FOR ANY CHANGES.
--- NOTE | 2023-03-12 10:36 | NUR ---
DR. SHARMA IN TO SEE PT, NGT DC'D ORDERED, TOLERATED WELL, PT WAS ADVISED TO TAKE SMALL SIPS OF CLEAR LIQUIDS SLOWLY, ABOUT 200CC PER SHIFT, PT VERBALIZED UNDERSTANDING, PT HAD A BM THIS AM, CONT. TO MONITOR FOR ANY CHANGES.
[2023-03-12 12:39] LABS: Bun/Creatinine Ratio 68.4 (12.0-20.0); Calcium, Blood 9.2 mg/dL (8.5-10.1); Creatinine, Blood 0.78 mg/dL (0.40-1.00); Potassium, Blood 3.2 mmol/L (3.5-5.5)
[2023-03-12 13:32] VITALS: BP 115/85
--- NOTE | 2023-03-12 17:23 | NUR ---
SUMMARY NGT TO SUCTION THIS AM, CONT. TO C/O ABD PAIN AND BACK PAIN, MEDICATED PER EMAR, C/O HAVING ANXIETY THIS AM, PT'S SISTER AND MOM CAME TO SIT WTIH HER, NGT DC'D TODAY PER DR. SHARMA, TOLERATED WELL, PT HAS HAD 180CC OF WATER SINCE NGT DC'D, HAD 2 BM'S TODAY, AMBULATED DOWN THE HALLS X2, OOB TO CHAIR X2, AMBULATING TO THE BATHROOM WITH STANDBY ASSIST, 97% ON RA, CONT. TO HAVE A NPC, ENCOURAGED TO CONT. TO US IS, NO ACUTE CHANGES THIS SHIFT.
[2023-03-12 19:32] VITALS: BP 101/69
[2023-03-13 03:01] VITALS: BP 99/75
[2023-03-13 05:13] LABS: Bun/Creatinine Ratio 71.5 (12.0-20.0); Calcium, Blood 8.9 mg/dL (8.5-10.1); Creatinine, Blood 0.78 mg/dL (0.40-1.00); Magnesium, Blood 2.2 mg/dL (1.6-2.4); Phosphorus, Blood 4.2 mg/dL (2.5-4.9); Potassium, Blood 3.6 mmol/L (3.5-5.5)
[2023-03-13 07:34] VITALS: BP 98/76
--- NOTE | 2023-03-13 08:16 | NUR ---
SUMMARY TOLERATING PO SIPS CLRS.VOIDING AND HAVING BMS,CONT ANXIOUS NEEDING ENCOURAGEMENT.
[2023-03-13 14:20] VITALS: BP 106/91
--- NOTE | 2023-03-13 17:54 | NUR ---
SUMMARY CONT. TO C/O CHRONIC BACK AND KNEE PAIN AND INCISIONAL PAIN, MEDICATED PER EMAR, OOB TO CHAIR AND AMBULATED DOWN THE HALLS AND IN ROOM, TOLERATING SMALL AMOUNTS OF FULL LIQUIDS FAIRLY WELL, HAD A LARGE BM TODAY, NO ACUTE CHANGES THIS SHIFT.
[2023-03-13 19:31] VITALS: BP 117/92
[2023-03-14 02:47] VITALS: BP 109/79
[2023-03-14 05:07] LABS: Hematocrit 37.7 % (33.0-51.0)
--- NOTE | 2023-03-14 05:08 | NUR ---
SHIFT SUMMARY PT A&OX4, AND COOPERATIVE WITH CARE. NO ACUTE CHANGES, VSS. MEDICATING FOR PAIN WITH PO OXYCODONE, NO IV PAIN MEDS NEEDED THIS SHIFT. TOLERATING FULL LIQUIDS. SBA TO BATHROOM. JAIR DRESSING COMPRESSED AND C/D/I. CALL LIGHT WITHIN REACH.
[2023-03-14 05:44] LABS: Bun/Creatinine Ratio 63.7 (12.0-20.0); Calcium, Blood 9.2 mg/dL (8.5-10.1); Creatinine, Blood 1.02 mg/dL (0.40-1.00); Magnesium, Blood 2.3 mg/dL (1.6-2.4); Phosphorus, Blood 4.7 mg/dL (2.5-4.9); Potassium, Blood 4.3 mmol/L (3.5-5.5)
[2023-03-14 07:23] VITALS: BP 89/70
[2023-03-14 14:23] VITALS: BP 92/73
[2023-03-14 19:31] VITALS: BP 102/71
[2023-03-15 03:50] VITALS: BP 104/79
--- NOTE | 2023-03-15 05:43 | NUR ---
SHIFT SUMMARY PT A&OX4, AND COOPERATIVE WITH CARE. NO ACUTE CHANGES, VSS. MEDICATING FOR PAIN WITH PO OXYCODONE. TOLERATING LOW FIBER DIET. SBA TO BATHROOM W/FWW. JAIR DRESSING C/D/I, COMPRESSED. CALLS APPROPRIATELY, CALL LIGHT WITHIN REACH.
[2023-03-15 05:50] LABS: Bun/Creatinine Ratio 64.8 (12.0-20.0); Calcium, Blood 9.6 mg/dL (8.5-10.1); Creatinine, Blood 1.05 mg/dL (0.40-1.00); Potassium, Blood 3.6 mmol/L (3.5-5.5)
[2023-03-15 07:20] VITALS: BP 98/64
[2023-03-15 15:01] VITALS: BP 88/72
[2023-03-15 16:06] VITALS: BP 90/65
--- NOTE | 2023-03-15 18:51 | NUR ---
PT SUMMARY: PT EMOTIONAL AND NEEDY HAVING EPISODES OF ANXIETY, WOULD ASK FREQUENTLY FOR PAIN AND ANXIETY MEDS PT IS MOSTLY ASLEEP AFTER LUNCH TIME PT WAS ENCOURAGE TO GET UP AND MOVE AROUND, PT AMBULTAROY WITH A WALKER TO THE BATHROOM, WAS ABLE TO AMBULATE AROUND THE UNTI WITH PT TODAY NO ISSUES, THEN PT BY THE END OF THE SHIFT GOT REALLY ANXIOUS, CONFUSED ON HER PAIN MEDS DOSING LIKE HER LAST DOSE TAKEN, PT WAS EDUCATED ABOUT PAIN MANAGEMENT LIKE MOBILITY PT IN DENIAL PT STATED SHE'S ANXIOUS OF GOING HOME AND NOT GETTING HELP FOR HER AND HER MOM PT WAS GIVEN A LOT OF ENCOURAGEMENT AND EDUCATION, PT FINALLY SETTLED DOWN AND DECIDED TO GO FOR A WALK. JAIR DRESSING REMOVED AND WAS REPLACED WITH MEDIPORE DRESSING, NOT MUCH OF DRAINAGE. PT C/O PASSING GAS ALSO HAD A BM AT THE END OD THE SHIFT MIXED OF FORMED AND LIQUID STOOL. PT HAS BEEN EATING AND DRNKING WITH NO ISSUES. NS RUNNING AT 150MLS/HR. NO OTHER ISSUES REPORTED WILL REPORT TO ONCOMING SHIFT
[2023-03-15 20:25] VITALS: BP 100/76
--- NOTE | 2023-03-16 05:50 | NUR ---
SHIFT SUMMARY NOC. PT HAD AN EX LAP ON 03/02/23 AND A REVISION AND NEEDLE DECOMPRESSION ON 03/07/23. PT'S MIDLINE ABDOMEN MEDIPORE DRESSING IS CLEAN, DRY, AND INTACT. PT UP TO COMMODE TO VOID. PT HAD AN EPISODE OF LOOSE STOOL AT 2015 ON 03/15/23. PT OPTED TO HOLD BEDTIME STOOL SOFTNERS. PT RESTING WITH EYES CLOSED MOST OF THE SHIFT. PT MEDICATED WITH ROUTINE PAIN MEDS WITH RELIEF OF SYMPTOMS.
[2023-03-16 06:04] VITALS: BP 95/60
--- NOTE | 2023-03-16 06:05 | NUR ---
REPORT GIVEN FROM SURGICAL TO MEDICAL FLOOR. SPOKE WITH CAROLYN ON MEDICAL FLOOR REGARDING PT TRANSFER. PT IS TO MOVE FROM ROOM 226 TO 356.
[2023-03-16 06:09] VITALS: BP 95/60
--- NOTE | 2023-03-16 06:40 | NUR ---
PT LEFT THE FLOOR VIA HOSPITAL BED. PT TRANSPORTED BY NURSING STAFF ROOPA TO MEDICAL FLOOR ROOM 356.
--- NOTE | 2023-03-16 06:46 | NUR ---
PT ARRIVED TO RM 356 AOX3. PT SETTLED INTO ROOM AND CALL LIGHT WITHIN REACH. NO DISTRESS NOTED. WILL CINTINUE TO MONITOR.
[2023-03-16 08:05] VITALS: BP 95/61
[2023-03-16 10:26] LABS: Magnesium, Blood 1.8 mg/dL (1.6-2.4)
[2023-03-16 10:51] LABS: Bun/Creatinine Ratio 51.1 (12.0-20.0); Calcium, Blood 7.8 mg/dL (8.5-10.1); Creatinine, Blood 0.65 mg/dL (0.40-1.00); Potassium, Blood 3.3 mmol/L (3.5-5.5)
[2023-03-16 14:01] VITALS: BP 99/72
--- NOTE | 2023-03-16 19:16 | NUR ---
SHIFT SUMMARY PT A&OX4. PT EMOTIONAL AND TEARFUL AT START OF SHIFT D/T CONCERN WITH TAKING CARE OF ELDERLY MOM AND HERSELF AT HOME. PT C/O ABD PAIN/FULLNESS. PT HAS BEEN PASSING GAS AND HAS HAD TWO EPISODES OF LIQUID STOOL. ABD FIRM AND TENDER. SISTER AT BEDSIDE T/O DAY. SISTER HAD CONCERNS ABOUT GETTING NOTE FROM DR MAYA THAT PT WAS IN THE HOSPITAL. LOAN SPECIALIST, JAYRO IS AWARE AND STATED SHE WOULD TRY TO GET NOTE TOMORROW. PICC LINE DRESSING CHANGED TODAY. ABD DRESSING WAS NOT CHANGED BUT REMAINS INTACT. DIATITION WAS IN TO ASSESS PT THIS AFTERNOON. VSS. BED ALARM ON. BED IN LOWEST POSITION AND CALL LIGHT IN REACH.
[2023-03-16 19:22] VITALS: BP 85/57
[2023-03-17 01:15] VITALS: BP 88/58
[2023-03-17 03:44] VITALS: BP 88/64
--- NOTE | 2023-03-17 04:23 | NUR ---
SHIFT SUMMARY LORENZO IS ALERT AND FULLY ORIENTED. SHE WAS PLEASANT AND COOPERATIVE THIS SHIFT AND CALLS FOR HELP APPROPRIATELY. PT COMPLAINS OF SEVERE 9/10 PAIN IN ABD, BACK AND L KNEE. PT RUNS SOFT BP AT BASELINE (SYSTOLIC IN THE 90S) BUT DROPPED INTO THE 80S THIS SHIFT, DOCTOR NOTIFIED, ORDER FOR 500ML NS BOLUS RECIEVED AND ADMINISTERED, MEDICATED FOR PAIN PER EMAR. NO ACUTE CHANGES, WILL CONTINUE TO MONITOR BP. PT HAD ONE LIQUID STOOL THIS SHIFT. SHE IS CURRENTLY RESTING IN BED AT THE LOWEST POSITION WITH THE CALL LIGHT IN REACH.
--- NOTE | 2023-03-17 05:11 | NUR ---
THIS SHORE MAN HAS REVIEWED AND AGREES WITH ALL NOTES AND ASSESSMENTS BY SAMUEL MONTEMAYOR.
[2023-03-17 06:27] LABS: Bun/Creatinine Ratio 39.5 (12.0-20.0); Creatinine, Blood 0.61 mg/dL (0.40-1.00); Potassium, Blood 3.7 mmol/L (3.5-5.5)
[2023-03-17 07:25] VITALS: BP 104/74
[2023-03-17] MEDS ORDERED: DOCUZEN 8.6-501 EACH PO (11:54)
--- NOTE | 2023-03-17 15:14 | NUR ---
Spiritual care visit conducted. Patient is lying in bed and alert. She tells me that she will d/c home today. She talks about her concerns to be able to manage her needs well even with home health on-board. She also voices concerns about having her pain medication refilled because her PCP is out of town. She shares about the struggles between her sister and herself but also states that she appreciates her coming up for 3 wks to take care of their 92 y/o mother who lives with the patient. I provide therapeutic listening, gentle job counselor and prayer. Patient responded well and showed signs of reduced stress. I will continue to remain available to patient and family.
--- NOTE | 2023-03-17 17:05 | NUR ---
DISCHARGE NOTE PT DISCHARGED TO HOME, PICKED UP BY [facility] VIA WHEELCHAIR. PICC REMOVED. PERSONAL BELONGINGS GATHERED AND RETURNED. DISCHARGE INFORMATION AND EDUCATION PROVIDED.
== END 2023-03-17 16:53 | disposition home or self-care (01) | DRG 330 ==
LOC: ER 15:11 → MEDS 23:09 → SURS 23:09 → MEDS 03-16 07:11
PROVIDERS: Family Medicine; Internal Medicine; Student in an Organized Health Care Education/Training Program; Surgery; ADMIT Student in an Organized Health Care Education/Training Program
PROC: 0DJD0ZZ Inspection of Lower Intestinal Tract, Open Approach (ICD-10-PCS; 2023-03-02)
PROC: 0D9670Z Drainage of Stomach with Drainage Device, Via Natural or Artificial Opening (ICD-10-PCS; principal; 2023-03-02 22:00)
PROC: 0DBH0ZZ Excision of Cecum, Open Approach (ICD-10-PCS; 2023-03-02 22:00)
PROC: 0DNH0ZZ Release Cecum, Open Approach (ICD-10-PCS; 2023-03-07)
PROC: 0DN80ZZ Release Small Intestine, Open Approach (ICD-10-PCS; 2023-03-07)
PROC: 0DNB0ZZ Release Ileum, Open Approach (ICD-10-PCS; 2023-03-07)
PROC: 05HY33Z Insertion of Infusion Device into Upper Vein, Percutaneous Approach (ICD-10-PCS; 2023-03-09)
DX: K56.609 Unspecified intestinal obstruction, unspecified as to partial versus complete obstruction (principal); E87.1 Hypo-osmolality and hyponatremia; F11.20 Opioid dependence, uncomplicated; R64 Cachexia; Z68.1 Body mass index [BMI] 19.9 or less, adult; K56.2 Volvulus; B19.20 Unspecified viral hepatitis C without hepatic coma; E87.6 Hypokalemia; M79.7 Fibromyalgia; M81.0 Age-related osteoporosis without current pathological fracture; K21.9 Gastro-esophageal reflux disease without esophagitis; G89.29 Other chronic pain; M25.561 Pain in right knee; M25.562 Pain in left knee; F17.210 Nicotine dependence, cigarettes, uncomplicated; F41.9 Anxiety disorder, unspecified; F32.A Depression, unspecified; E03.9 Hypothyroidism, unspecified; J44.9 Chronic obstructive pulmonary disease, unspecified; Z96.653 Presence of artificial knee joint, bilateral; Z96.641 Presence of right artificial hip joint; Z88.8 Allergy status to other drugs, medicaments and biological substances; Z90.710 Acquired absence of both cervix and uterus; Z90.49 Acquired absence of other specified parts of digestive tract; Z98.890 Other specified postprocedural states; Z87.81 Personal history of (healed) traumatic fracture; Z79.899 Other long term (current) drug therapy; Z79.890 Hormone replacement therapy; Z87.19 Personal history of other diseases of the digestive system; Z87.39 Personal history of other diseases of the musculoskeletal system and connective tissue
CPT/HCPCS: 36415; 36569; 71045; 74019; 74177; 80048; 80053; 80069; 81001; 82947; 83605; 83690; 83735; 84100; 84478; 84484; 85014; 85018; 85025; 85027; 85610; 86850; 86900; 86901; 88305; 93005; 93010; 94640; 94664; 94760; 94762; 96361; 96374-59; 96375; 97110; 97116; 97162; 97530; 99285-25; A9270; C1751; J0330; J0360; J0690; J1100; J1170; J1650; J1885; J2060; J2270; J2371; J2405; J2704; J3010; J3411; J3480; J7030; J7040; J7050; J7060; J7120; Q9967

== ENCOUNTER 2023-10-18 08:45 | Day surgery (SDC) | payer OTHER ==
[~2023-10-18] VITALS: Ht 160 cm; Wt 57.4 kg
[~2023-10-18 08:45] MED LIST changes: +DOCUZEN 8.6-501 EACH PO; +IPRAT-ALBUT 0.5-3 ML INH; +Morphine Sulfat15 MG PO
[2023-10-18] MEDS ORDERED: propofoL 60 ML IV ONE (08:52)
[2023-10-18] MEDS ORDERED: NS 50 ML IV ONE (08:55)
[2023-10-18] MEDS ORDERED: CeFAZolin Sodium 2,000 MG VIAL ONE (08:55)
[2023-10-18] MEDS ORDERED: Lactated Ringer's 1,000 ML IV ONE (09:12)
--- NOTE | 2023-10-18 09:13 | NUR ---
10/18/23 0913 [address] Ch CALL LIGHT WITHIN REACH.
[2023-10-18] MEDS ORDERED: Ketorolac Tromethamine 30mg Vial ONE (09:57)
[2023-10-18 10:19] VITALS: BP 145/86
[2023-10-21] MEDS ORDERED: ALPRAZOLAM0.5 M1 PO (16:20)
[2023-10-21] MEDS ORDERED: GABAPENTIN600 MG PO (16:21)
== END 2023-10-18 10:34 | disposition home or self-care (01) ==
LOC: ORSCSDS 08:45
DX: M65.331 Trigger finger, right middle finger (principal); M65.332 Trigger finger, left middle finger; J44.9 Chronic obstructive pulmonary disease, unspecified; K21.9 Gastro-esophageal reflux disease without esophagitis; I10 Essential (primary) hypertension; M79.7 Fibromyalgia; E03.9 Hypothyroidism, unspecified; Z79.899 Other long term (current) drug therapy; F17.210 Nicotine dependence, cigarettes, uncomplicated
CPT/HCPCS: J0690; J1885; J2704; J7120

== ENCOUNTER 2024-08-16 17:57 | Emergency (ER) | payer MEDICARE, OTHER ==
[~2024-08-16] VITALS: Ht 160 cm; Wt 69.0 kg
[~2024-08-16 17:57] MED LIST changes: +ALPRAZOLAM0.5 M1 PO
[2024-08-16 19:12] VITALS: BP 123/89
[2024-08-16 19:46] LABS: BASOPHILS ABSOLUTE AUTO 0.03 K/mm3 (0.00-0.23); BASOPHILS PERCENT AUTO 0 % (0-2); EOSINOPHILS PERCENT AUTO 1 % (0-6); Hematocrit 35.3 % (33.0-51.0); Hemoglobin 11.7 g/dL (11.5-16.0); IMMATURE GRAN ABSOLUTE AUTO 0.03 K/mm3 (0.00-0.10); IMMATURE GRAN PERCENT AUTO 0 % (0-1); LYMPHOCYTES ABSOLUTE AUTO 1.53 K/mm3 (0.84-5.20); LYMPHOCYTES PERCENT AUTO 17 % (21-46); MONOCYTES ABSOLUTE AUTO 0.42 K/mm3 (0.16-1.47); MONOCYTES PERCENT AUTO 5 % (4-13); Mean Corpuscular HGB 32.4 pg (26.0-34.0); Mean Corpuscular HGB Conc 33.1 g/dL (31.5-36.5); Mean Corpuscular Volume 98 fL (80-100); Mean Platelet Volume 9.5 fL (9.1-12.4); NEUTROPHILS ABSOLUTE AUTO 6.75 K/mm3 (1.96-9.15); NEUTROPHILS PERCENT AUTO 76 % (41-73); Platelet Count 172 K/mm3 (150-400); RDW Coefficient Variation 12.8 % (11.7-14.2); RDW Standard Deviation 46.2 fL (35.1-46.3); Red Blood Cell Count 3.61 M/mm3 (3.80-5.20); White Blood Cell Count 8.86 K/mm3 (4.00-11.30)
[2024-08-16 20:19] LABS: Albumin, Blood 3.7 g/dL (3.4-5.0); Albumin/Globulin Ratio 1.1 (0.8-1.8); Bilirubin, Total 0.3 mg/dL (0.1-1.0); Bun/Creatinine Ratio 17.4 (12.0-20.0); Creatinine, Blood 0.75 mg/dL (0.40-1.00); Globulin, Blood 3.4 g/dL (2.2-4.0); Total Protein, Blood 7.1 g/dL (6.4-8.2)
[2024-08-16 20:28] LABS: Source, Urine Clean Catch
[2024-08-16 20:34] LABS: Appearance, Urine Clear (Clear); Bilirubin, Urine Neg (Neg); Blood, Urine 1+ (Neg); Color, Urine Yellow (P-Yellow); Glucose Qualitative, Urine Neg (Neg); Ketones, Urine Neg (Neg); Leukocyte Esterase, Urine 1+ (Neg); Nitrite, Urine Neg (Neg); Protein, Urine Neg (Neg); Specific Gravity, Urine 1.015 (1.003-1.022); Urobilinogen, Urine NORM (Normal)
[2024-08-16 20:42] LABS: Bacteria Many /hpf; Red Blood Cells, Urine 0-2 /hpf (0-2); Squamous Epithelial Cells Rare /hpf (Few)
== END 2024-08-16 21:01 | disposition home or self-care (01) ==
LOC: ER 17:57
PROVIDERS: Student in an Organized Health Care Education/Training Program
DX: N39.0 Urinary tract infection, site not specified (principal); K21.9 Gastro-esophageal reflux disease without esophagitis; F17.210 Nicotine dependence, cigarettes, uncomplicated; Z79.899 Other long term (current) drug therapy; Z88.8 Allergy status to other drugs, medicaments and biological substances
CPT/HCPCS: 80053; 81001; 85025; 87077; 87086; 87186; 99283

== ENCOUNTER → 2024-08-20 | Outpatient (CLI) | payer MEDICARE, OTHER ==
[2024-08-20 17:34] LABS: Appearance, Urine Clear (Clear); Bilirubin, Urine Neg (Neg); Blood, Urine 1+ (Neg); Color, Urine Yellow (P-Yellow); Glucose Qualitative, Urine Neg (Neg); Ketones, Urine Neg (Neg); Leukocyte Esterase, Urine Neg (Neg); Nitrite, Urine Neg (Neg); Protein, Urine 1+ (Neg); Specific Gravity, Urine 1.025 (1.003-1.022); Urobilinogen, Urine NORM (Normal)
[2024-08-20 17:52] LABS: Bacteria Many /hpf; Calcium Oxalate Crystals Few /hpf; Red Blood Cells, Urine 0-2 /hpf (0-2); Squamous Epithelial Cells Few /hpf (Few)
== END | disposition home or self-care (01) ==
LOC: LAB SHORT 14:49
PROVIDERS: Internal Medicine
DX: N39.0 Urinary tract infection, site not specified (principal)
CPT/HCPCS: 81001; 87077; 87086; 87186

== ENCOUNTER 2024-09-06 15:40 | Emergency (ER) | payer MEDICARE, OTHER ==
[~2024-09-06] VITALS: Ht 160 cm; Wt 70.3 kg
[2024-09-06] MEDS ORDERED: HYDROmorphone HCl/Pf 1MG SYR IV ONE ×4 (16:05→19:50)
[2024-09-06] MEDS ORDERED: NS 1,000 ML IV SCH (16:40)
[2024-09-06] MEDS ORDERED: CYMBALTA30 M2 (16:57)
[2024-09-06] MEDS ORDERED: PROZAC40 MG (16:57)
[2024-09-06] MEDS ORDERED: Ketorolac Tromethamine 15mg Vial IV ONE (19:00)
[2024-09-06] MEDS ORDERED: RX Prepack 6 Tabs Oxycodone 5mg UD ONE (19:50)
[2024-09-06] MEDS ORDERED: HYDROmorphone HCl 0.5 MG/0.5 ML SYR IV ONE (20:10)
[2024-09-06 20:47] VITALS: BP 140/100
[2024-09-06] MEDS ORDERED: Percocet 5-3251 EACH PO (20:51)
== END 2024-09-06 21:04 | disposition home or self-care (01) ==
LOC: ER 15:40
DX: S72.334A Nondisplaced oblique fracture of shaft of right femur, initial encounter for closed fracture (principal); M97.01XA Periprosthetic fracture around internal prosthetic right hip joint, initial encounter; J44.9 Chronic obstructive pulmonary disease, unspecified; E03.9 Hypothyroidism, unspecified; M81.0 Age-related osteoporosis without current pathological fracture; K21.9 Gastro-esophageal reflux disease without esophagitis; Z96.651 Presence of right artificial knee joint; F17.210 Nicotine dependence, cigarettes, uncomplicated; Z88.6 Allergy status to analgesic agent; Z88.5 Allergy status to narcotic agent; Z88.8 Allergy status to other drugs, medicaments and biological substances; Z79.899 Other long term (current) drug therapy; W18.30XA Fall on same level, unspecified, initial encounter
CPT/HCPCS: 29505; 73502; 73552; 73700; 96361-59; 96374-59; 96375-59; 96376-59; 99284-25; A9270; J1171; J1885; J7030

== ENCOUNTER 2024-09-25 10:02 | Observation (INO) | payer MEDICARE, OTHER ==
[~2024-09-25] VITALS: Ht 160 cm; Wt 70.7 kg
[~2024-09-25 10:02] MED LIST changes: +CYMBALTA30 M2 PO; +PROZAC40 MG
[2024-09-25] MEDS ORDERED: CefTRIAXone Sodium 1,000 MG in NS 100 ML IV ONE (10:30)
[2024-09-25] MEDS ORDERED: Acetaminophen 325 MG TABLET PO ONE (10:30)
[2024-09-25] MEDS ORDERED: NS 1,000 ML IV SCH (10:30)
[2024-09-25 10:43] LABS: BASOPHILS ABSOLUTE AUTO 0.04 K/mm3 (0.00-0.23); BASOPHILS PERCENT AUTO 0 % (0-2); EOSINOPHILS ABSOLUTE AUTO 0.15 K/mm3 (0.00-0.68); EOSINOPHILS PERCENT AUTO 1 % (0-6); Hematocrit 29.9 % (33.0-51.0); Hemoglobin 9.6 g/dL (11.5-16.0); IMMATURE GRAN ABSOLUTE AUTO 0.05 K/mm3 (0.00-0.10); IMMATURE GRAN PERCENT AUTO 0 % (0-1); LYMPHOCYTES ABSOLUTE AUTO 0.66 K/mm3 (0.84-5.20); LYMPHOCYTES PERCENT AUTO 6 % (21-46); MONOCYTES ABSOLUTE AUTO 0.61 K/mm3 (0.16-1.47); MONOCYTES PERCENT AUTO 5 % (4-13); Mean Corpuscular HGB 32.1 pg (26.0-34.0); Mean Corpuscular HGB Conc 32.1 g/dL (31.5-36.5); Mean Corpuscular Volume 100 fL (80-100); Mean Platelet Volume 8.8 fL (9.1-12.4); NEUTROPHILS ABSOLUTE AUTO 10.35 K/mm3 (1.96-9.15); NEUTROPHILS PERCENT AUTO 87 % (41-73); Platelet Count 279 K/mm3 (150-400); RDW Coefficient Variation 13.2 % (11.7-14.2); RDW Standard Deviation 48.4 fL (35.1-46.3); Red Blood Cell Count 2.99 M/mm3 (3.80-5.20); White Blood Cell Count 11.86 K/mm3 (4.00-11.30)
[2024-09-25 10:52] LABS: Albumin, Blood 3.3 g/dL (3.4-5.0); Albumin/Globulin Ratio 0.9 (0.8-1.8); Bilirubin, Total 0.3 mg/dL (0.1-1.0); Bun/Creatinine Ratio 18.5 (12.0-20.0); Creatinine, Blood 0.59 mg/dL (0.40-1.00); Globulin, Blood 3.8 g/dL (2.2-4.0); Potassium, Blood 4.4 mmol/L (3.5-5.5); Total Protein, Blood 7.1 g/dL (6.4-8.2)
[2024-09-25 11:08] LABS: Source, Urine Straight Cath
[2024-09-25 11:54] LABS: Influenza A, PCR NEGATIVE (NEGATIVE); Influenza B, PCR NEGATIVE (NEGATIVE); Resp Syncytial Virus, PCR NEGATIVE (NEGATIVE); SARS-Cov-2 (COVID-19) PCR, MMC NEGATIVE (NEGATIVE)
[2024-09-25 11:56] LABS: Appearance, Urine Hazy (Clear); Bilirubin, Urine Neg (Neg); Blood, Urine Neg (Neg); Glucose Qualitative, Urine Neg (Neg); Ketones, Urine Neg (Neg); Leukocyte Esterase, Urine Neg (Neg); Nitrite, Urine Pos (Neg); Protein, Urine Neg (Neg); Urobilinogen, Urine NORM (Normal)
[2024-09-25] MEDS ORDERED: MERIBIN5 MG PO (12:17)
[2024-09-25] MEDS ORDERED: HYOS.125 PO (12:18)
[2024-09-25] MEDS ORDERED: LINZESS290 MCG PO (12:20)
[2024-09-25] MEDS ORDERED: OMEP20ER PO (12:20)
[2024-09-25] MEDS ORDERED: VALA500 PO (12:21)
[2024-09-25 12:35] LABS: Color, Urine Pale Yellow (P-Yellow)
[2024-09-25 12:40] LABS: Red Blood Cells, Urine 0-2 /hpf (0-2)
[2024-09-25 12:42] LABS: Bacteria Many /hpf; Squamous Epithelial Cells Rare /hpf (Few)
[2024-09-25] MEDS ORDERED: Ondansetron HCl 2 MG / ML 2ML Vial IV PRN (14:05)
[2024-09-25] MEDS ORDERED: HydrALAZINE HCl 20 MG / ML 1ML Vial IV PRN (14:05)
[2024-09-25] MEDS ORDERED: FLU VACC TS2024-25(6MOS UP)/PF 45 MCG/0.5 ML SYRINGE IM SCH (14:05)
[2024-09-25] MEDS ORDERED: DULoxetine HCL 30 MG Cap DR PO SCH (15:00)
[2024-09-25] MEDS ORDERED: OxyCODONE 5 mg/Acetamin 325 mg TABLET PO PRN (15:00)
[2024-09-25] MEDS ORDERED: Albuterol HFA200 ACT/6.7 GM INH INH PRN (15:10)
[2024-09-25] MEDS ORDERED: LINACLOTIDE 290 MCG CAPSULE PO PRN (15:15)
[2024-09-25 15:57] VITALS: BP 115/64
[2024-09-25] MEDS ORDERED: ACET500 PO ×2 (16:24→16:25)
[2024-09-25] MEDS ORDERED: ALPRAZolam 0.5 MG Tab PO SCH (17:00)
[2024-09-25] MEDS ORDERED: Hyoscyamine Sulfate 0.125 MG Tab PO SCH (17:00)
[2024-09-25] MEDS ORDERED: Ipratropium/Albuterol SulF 2.5-0.5MG/3 ML Amp INH SCH (17:00)
[2024-09-25] MEDS ORDERED: OxyCODONE HCL 5 MG TAB PO PRN (17:10)
[2024-09-25] MEDS ORDERED: OxyCODONE HCL 5 MG TAB PO ONE (17:10)
[2024-09-25 19:36] VITALS: BP 125/65
--- NOTE | 2024-09-25 19:46 | NUR ---
SHIFT SUMMARY PT ARRIVED AT 1600. PT TRANSFERED FROM [facility] WITH SLIDER SHEET. PT A&OX4. PT ADMITTED DUE TO SEPSIS/UTI. PT REPORTS PAIN IN R FEMER DUE TO RECENT SURGERY. PAIN MANAGED PER EMAR. PT SAYS SHE USES WALKER AT HOME. PT HAS FREQUENCY WITH URINE. REPORTED TO NIGHT RN MEDS STILL NEED RECONSILED. PT ON ROOM AIR, PT REPORTS USING 1L OF O2 AT BASE PRN. SPO2 IS 94% PT IN BED. BED IN LOWEST POSITION, PT ORIENTED TO UNIT/FALL PRECAUTIONS CALL LIGHT. CALLS APPROPRIATE, EATS ADEQUATE.
[2024-09-25] MEDS ORDERED: Biotin 5 MG Cap PO SCH (21:00)
[2024-09-25] MEDS ORDERED: QUEtiapine Fumarate 200 MG Tab PO SCH (21:00)
[2024-09-25] MEDS ORDERED: Cyclobenzaprine HCl 10 MG Tab PO SCH (21:00)
[2024-09-25] MEDS ORDERED: Lactobacil 2-S.Thermo-Bifido 1 1 Cap PO SCH (21:00)
[2024-09-25] MEDS ORDERED: Gabapentin 300 MG Cap PO SCH (21:00)
[2024-09-26 02:29] VITALS: BP 132/82
[2024-09-26 05:09] LABS: Hematocrit 28.1 % (33.0-51.0); Hemoglobin 9.3 g/dL (11.5-16.0); Mean Corpuscular HGB 31.8 pg (26.0-34.0); Mean Corpuscular HGB Conc 33.1 g/dL (31.5-36.5); Mean Corpuscular Volume 96 fL (80-100); Mean Platelet Volume 9.3 fL (9.1-12.4); Platelet Count 259 K/mm3 (150-400); RDW Coefficient Variation 13.2 % (11.7-14.2); RDW Standard Deviation 46.4 fL (35.1-46.3); Red Blood Cell Count 2.92 M/mm3 (3.80-5.20); White Blood Cell Count 7.94 K/mm3 (4.00-11.30)
--- NOTE | 2024-09-26 05:10 | NUR ---
SHIFT SUMMARY; PATIENT SLEPT IN LONG INTERVALS. MEDICATED FOR PAIN X 1. UP TO BSC. AFEBRILE.
[2024-09-26] MEDS ORDERED: Omeprazole 20 MG CapCR PO SCH (06:00)
[2024-09-26] MEDS ORDERED: Levothyroxine Sodium 0.088 MG Tab PO SCH (06:00)
[2024-09-26 07:23] VITALS: BP 139/84
[2024-09-26] MEDS ORDERED: Enoxaparin 40 MG/0.4 ML SYR SC SCH (09:00)
[2024-09-26] MEDS ORDERED: OxyCODONE HCL 5 MG TAB PO PRN (09:50)
[2024-09-26] MEDS ORDERED: CefTRIAXone Sodium 1,000 MG in NS 100 ML IV SCH (12:00)
[2024-09-26] MEDS ORDERED: OXAYDO5 M3 PO (14:07)
[2024-09-26] MEDS ORDERED: VISBIOME 112.51 EACH PO (15:06)
[2024-09-26] MEDS ORDERED: CIPR500 PO (15:07)
[2024-09-26] MEDS ORDERED: NITR100CA PO (15:09)
--- NOTE | 2024-09-26 15:19 | NUR ---
Pt. is awake in bed and welcomes mu visit. Pt. is pleasant. Facilitated a life review and listened with interest and empathy. 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 Considered matters of ronnie and belief. The Pt. verbalized that she expected to be discharged home later this afternoon. Prayed with the Pt. Pt. verbalized gratitude for the spiritual care visit.
--- NOTE | 2024-09-26 18:17 | NUR ---
SUMMARY- PT A/O X4, SBA WALKER. R HIP WITH DEANA DOWN TO BELOW KNEE. SPOTS OF PINK ALONG INCISION LINE, NO SS OF INFECTION. NO HEAT OR DRAINAGE. PAIN CONTROLLED WITH OXYCODONE 20MG. HAD FREQ CHANGED FROM Q6-Q4. PT'S ANXIETY MANAGED WITH ROUTINE XANAX. PT REFUSED BREAKFAST AND LUNCH, HAD SANDWICH FOR DINNER. PLAN FOR DISCHARGE 1730 TRANSPORT- STILL AWAITING WHEELCHAIR RIDE. WILL REPORT TO YAZAN RN
--- NOTE | 2024-09-26 18:39 | NUR ---
PT DISCHARGED 1829 WHEELCHAIR DISCHARGE, 2 PERSON TRANSPORT- PT SENT WITH BELONGINGS. MEDICATED FOR PAIN BEFORE DISCHARGE. SBA TO WHEELCHAIR
== END 2024-09-26 18:28 | disposition home health service (06) ==
LOC: ER 10:02 → MEDS 10:03
PROVIDERS: Emergency Medicine; ADMIT Internal Medicine
DX: A41.9 Sepsis, unspecified organism (principal); N39.0 Urinary tract infection, site not specified; B96.20 Unspecified Escherichia coli [E. coli] as the cause of diseases classified elsewhere; J44.9 Chronic obstructive pulmonary disease, unspecified; D63.8 Anemia in other chronic diseases classified elsewhere; M81.0 Age-related osteoporosis without current pathological fracture; K21.9 Gastro-esophageal reflux disease without esophagitis; M79.7 Fibromyalgia; E03.9 Hypothyroidism, unspecified; F41.9 Anxiety disorder, unspecified; F32.A Depression, unspecified; F17.210 Nicotine dependence, cigarettes, uncomplicated; F11.20 Opioid dependence, uncomplicated; Z79.890 Hormone replacement therapy; Z79.899 Other long term (current) drug therapy; Z88.5 Allergy status to narcotic agent; Z88.8 Allergy status to other drugs, medicaments and biological substances; Z86.19 Personal history of other infectious and parasitic diseases; Z90.49 Acquired absence of other specified parts of digestive tract
CPT/HCPCS: 0241U; 36415; 51701; 51798; 71045; 80053; 81001; 83605; 85025; 85027; 87040; 87077; 87086; 87186; 94640; 94664; 94760; 96361-59; 96365-59; 96366; 96372; 97110; 97116; 97162; 99284-25; A9270; G0378; J0696; J1650; J7030

== ENCOUNTER → 2024-10-15 | Outpatient (CLI) | payer MEDICARE, OTHER ==
[~2024-10-15] MED LIST changes: +ACET500 PO; +CIPR500 PO; +HYOS.125 PO; +MERIBIN5 MG PO; +NITR100CA PO; +OXAYDO5 M3 PO; +VALA500 PO; +VISBIOME 112.51 EACH PO
[2024-10-15 13:23] LABS: Appearance, Urine Clear (Clear); Bilirubin, Urine Neg (Neg); Blood, Urine 1+ (Neg); Color, Urine Yellow (P-Yellow); Glucose Qualitative, Urine Neg (Neg); Ketones, Urine Neg (Neg); Leukocyte Esterase, Urine Neg (Neg); Nitrite, Urine Neg (Neg); Protein, Urine 1+ (Neg); Urobilinogen, Urine NORM (Normal)
[2024-10-15 14:00] LABS: Bacteria Rare /hpf; Red Blood Cells, Urine 0-2 /hpf (0-2); Squamous Epithelial Cells Rare /hpf (Few); White Blood Cells, Urine 0-2 /hpf (0-5)
== END ==
LOC: LAB 12:21 → LAB SHORT 12:21
PROVIDERS: Internal Medicine
DX: N39.0 Urinary tract infection, site not specified (principal)
CPT/HCPCS: 81001

== ENCOUNTER 2024-12-13 09:32 | Emergency (ER) | payer MEDICARE, OTHER ==
[~2024-12-13] VITALS: Ht 170.2 cm; Wt 79.4 kg
[2024-12-13] MEDS ORDERED: HYDROmorphone HCl/Pf 1MG SYR IV ONE (09:50)
[2024-12-13] MEDS ORDERED: NS 1,000 ML IV SCH (09:50)
[2024-12-13] MEDS ORDERED: Ondansetron HCl 2 MG / ML 2ML Vial IV ONE (09:50)
[2024-12-13 09:59] LABS: BASOPHILS ABSOLUTE AUTO 0.04 K/mm3 (0.00-0.23); BASOPHILS PERCENT AUTO 1 % (0-2); EOSINOPHILS ABSOLUTE AUTO 0.09 K/mm3 (0.00-0.68); EOSINOPHILS PERCENT AUTO 3 % (0-6); Hematocrit 33.4 % (33.0-51.0); Hemoglobin 10.7 g/dL (11.5-16.0); IMMATURE GRAN PERCENT AUTO 0 % (0-1); LYMPHOCYTES ABSOLUTE AUTO 1.64 K/mm3 (0.84-5.20); LYMPHOCYTES PERCENT AUTO 51 % (21-46); MONOCYTES ABSOLUTE AUTO 0.33 K/mm3 (0.16-1.47); MONOCYTES PERCENT AUTO 10 % (4-13); Mean Corpuscular HGB 29.6 pg (26.0-34.0); Mean Corpuscular Volume 92 fL (80-100); Mean Platelet Volume 10.5 fL (9.1-12.4); NEUTROPHILS ABSOLUTE AUTO 1.11 K/mm3 (1.96-9.15); NEUTROPHILS PERCENT AUTO 35 % (41-73); Platelet Count 170 K/mm3 (150-400); RDW Coefficient Variation 13.3 % (11.7-14.2); RDW Standard Deviation 45.1 fL (35.1-46.3); Red Blood Cell Count 3.62 M/mm3 (3.80-5.20); White Blood Cell Count 3.21 K/mm3 (4.00-11.30)
[2024-12-13 10:28] LABS: Albumin, Blood 3.5 g/dL (3.4-5.0); Albumin/Globulin Ratio 1.1 (0.8-1.8); Bilirubin, Total 0.1 mg/dL (0.1-1.0); Bun/Creatinine Ratio 23.4 (12.0-20.0); Calcium, Blood 8.7 mg/dL (8.5-10.1); Creatinine, Blood 0.6 mg/dL (0.40-1.00); Globulin, Blood 3.3 g/dL (2.2-4.0); Magnesium, Blood 2.1 mg/dL (1.6-2.4); Potassium, Blood 3.8 mmol/L (3.5-5.5); Total Protein, Blood 6.8 g/dL (6.4-8.2)
[2024-12-13 11:24] VITALS: BP 128/99
== END 2024-12-13 11:20 | disposition home or self-care (01) ==
LOC: ER 09:32
PROVIDERS: Student in an Organized Health Care Education/Training Program
DX: K64.8 Other hemorrhoids (principal); K64.4 Residual hemorrhoidal skin tags; D64.9 Anemia, unspecified; E03.9 Hypothyroidism, unspecified; M81.0 Age-related osteoporosis without current pathological fracture; K21.9 Gastro-esophageal reflux disease without esophagitis; J44.9 Chronic obstructive pulmonary disease, unspecified; F17.210 Nicotine dependence, cigarettes, uncomplicated; Z88.5 Allergy status to narcotic agent; Z88.8 Allergy status to other drugs, medicaments and biological substances; Z79.890 Hormone replacement therapy; Z79.899 Other long term (current) drug therapy
CPT/HCPCS: 36415; 74177; 80053; 82272; 83735; 85025; 85610; 85730; 86850; 86900; 86901; 93005; 93010; 96374; 96375; 99284-25; J1171; J2405; J7030; Q9967

== ENCOUNTER → 2025-03-22 | Outpatient (CLI) | payer MEDICARE, OTHER ==
[2025-03-22 14:13] LABS: Stool Occult Bld Immuno 1 Negative (NEGATIVE); Stool Occult Bld Immuno 2 Negative (NEGATIVE)
== END ==
LOC: LAB SHORT 03-21 11:47 → LAB 11:48
PROVIDERS: Nurse Practitioner
DX: D50.9 Iron deficiency anemia, unspecified (principal); D72.819 Decreased white blood cell count, unspecified; E55.9 Vitamin D deficiency, unspecified; Z79.899 Other long term (current) drug therapy
CPT/HCPCS: 82274